=== PATIENT | female | born 1945 | race Caucasian/White ===

== ENCOUNTER 2019-11-25 10:06 | Inpatient (IN) ==
--- NOTE | 2019-11-25 11:35 | DR.H&P ---
H&P History & Physical for Day of: H&P Date: 11/25/19 Chief Complaint Chief Complaint: fever shortness of breath nausea/vomiting Allergies Allergies Allergy/AdvReac Type Severity Reaction Status Date / Time No Known Drug Allergies Allergy Verified 11/24/19 09:54 History of Present Illness History of Present Illness: Pt is a 74 y/o f pmhx HTN, Hypothyroidism, pr esenting after having fever, cough, body aches, worsening shortness of breath, nausea/vomiting, generalized weakness. Pt reports symptoms started early yesterday morning. She was seen in the ED yesterday and diagnosed with pneumonia. She was given antibiotics and steroids to continue at home and to follow up with pcp. This morning patient reported worsening of symptoms, failing outpatient treatment. She was directly admitted for further evaluation and treatment. Labs/imaging: Wbc:17.6>10.9, Hgb 13>11.7, Plt 266>235, Na 140>139, K 4.2>4.0, Cr 0.95>0.91, Gluc 107>95, CRP 12>89, AB.51/28/60/22/93%, UA not c/w infection, Flu/Strep negative, COVID19/BloodCx/SputumCx pending. CXR:Likely slight worsening of bilateral infiltrates. Consideration should be given to atypical causes of pneumonia as well as lobar pneumonia. Will start patient on treatments: Abx Levaquin, Solumedrol 60mg q8h, Duonebs, supplemental O2 prn, pneumonia protocol. Restart home medications. Continue to monitor and follow up labs/imaging in the morning. Past Medical History Past Medical History: Hypertension and Hypothyroidism Past Surgical History Surgical History: Hysterectomy Medications Home Medications: No Known Drug Allergies Allergy (Verified 11/24/19 09:54) Labs Result Diagrams: 11/25/19 12:52 11/25/19 12:52 Review of Systems Constitutional: Fever, Chills and Weakness Eyes: No Symptoms Reported ENT: No Symptoms Reported Respiratory: Cough and Shortness of Breath Cardiovascular: No Symptoms Reported Gastrointestinal: Nausea and Vomiting; denies Diarrhea and Constipation Genitourinary: No Symptoms Reported Musculoskeletal: No Symptoms Reported Skin: No Symptoms Reported Neurological: No Symptoms Reported Physical Exam Vital Signs: Blood Pressure [Left Arm] 138/72 Blood Pressure 118/54 Oriented: Normal Eyes: Normal Ear: Normal Nose: Normal Throat: Normal Respiratory: DIONICIO Rales and LML Rales Cardiovascular: Normal : Normal Auscultation: Bowel Sounds: Normal Palpation: Normal Tenderness: Epigastric and Mild Skin: Normal Musculoskeletal: Normal Psychiatric: Normal Mood Description: Calm and Appropriate Affect: Normal Speech Pattern: Clear and Appropriate Assessment/Plan (1) Pneumonia: Qualifiers: Laterality: left Lung location: upper lobe of lung Pneumonia type: due to unspecified organism Qualified Code(s): J18.9 - Pneumonia, unspecified organism Status: Acute Plan: Continue antibiotics, steroids, bronchodilators. Review H&P Reviewed: Yes Patient was examined?: Yes
--- NOTE | 2019-11-25 12:23 | RAD ---
HISTORYSOB, PNEUMONIASTUDYCHEST x-ray, 1 VIEWCOMPARISONX-ray 11/24/2019FINDINGSPersistent vague upper lobe infiltrates are seen bilaterally with slightly increasing left lower lobe infiltrate. Findings are probably due to pneumonia. Atypical causes of pneumonia are not excluded.Probable small left pleural effusion is seen. No pneumothorax is seen. Heart is normal in size. There is likely small hiatus hernia.IMPRESSIONLikely slight worsening of bilateral infiltrates. Consideration should be given to atypical causes of pneumonia as well as lobar pneumonia.Electronically signed by: David Bo (Nov 25, 2019 12:23:20)
[2019-11-25] MEDS ORDERED: SOLU-Medrol 40 MG VIAL IVP SCH (13:00)
[2019-11-25 13:14] LABS: BASOPHILS # (AUTO) 0.1 X10^3/uL (0.0-0.1); BASOPHILS % (AUTO) 0.5 % (0.2-1.0); EOSINOPHILS # (AUTO) 0.3 x10^3/uL (0.0-0.2); EOSINOPHILS % (AUTO) 2.4 % (0.9-2.9); HEMATOCRIT 35.3 % (36.0-47.0); HEMOGLOBIN 11.7 g/dL (12.0-16.0); LYMPHOCYTES % (AUTO) 18.2 % (21.0-51.0); MEAN CORPUSCULAR HEMOGLOBIN 29.1 pg (27.0-34.0); MEAN CORPUSCULAR HGB CONC 33.3 g/dL (33.0-35.0); MEAN CORPUSCULAR VOLUME 87.5 fL (80.0-100.0); MEAN PLATELET VOLUME 8.1 fL (7.4-11.0); MONOCYTES # (AUTO) 1.1 x10^3/uL (0.3-0.8); MONOCYTES % (AUTO) 9.7 % (0.0-13.0); NEUTROPHILS # (AUTO) 7.5 x10^3/uL (2.2-4.8); NEUTROPHILS % (AUTO) 69.2 % (42.0-75.0); PLATELET COUNT 235 X10^3/uL (150.0-450.0); RED BLOOD COUNT 4.03 X10^6/uL (3.5-5.4); RED CELL DISTRIBUTION WIDTH 13.6 % (11.6-16.5); WHITE BLOOD COUNT 10.9 X10^3/uL (3.6-10.0)
[2019-11-25 13:21] LABS: ALANINE AMINOTRANSFERASE 18 Units/L (12-78); ALBUMIN 2.6 g/dL (3.4-5.0); ALKALINE PHOSPHATASE 105 Units/L (46-116); ASPARTATE AMINO TRANSFERASE 18 Units/L (15-37); BLOOD UREA NITROGEN 14 mg/dL (7-18); CALCIUM 9.4 mg/dL (8.5-10.1); CARBON DIOXIDE 26.3 mmol/L (21-32); CHLORIDE 105 mmol/L (98-107); COR CA(FOR HYPOALB) 10.5 mg/dL (8.5-10.1); CREATININE 0.91 mg/dL (0.55-1.02); SODIUM 139 mmol/L (136-145); TOTAL PROTEIN 7.5 g/dL (6.4-8.2); eGFR NON BLACK RACES > 60 (>60)
[2019-11-25] MEDS: DUONEB 0.5 MG/3 MG (3 mL) NEB SCH ×2 (13:45→21:25)
[2019-11-25] MEDS: NS 1000 ML 1,000 ML IV SCH (13:57)
[2019-11-25] MEDS: LEVAQUIN PREMIX IV 500 MG 500 MG/100 ML BAG IV SCH (13:58)
[2019-11-25] MEDS: SOLU-Medrol 40 MG VIAL IVP SCH ×2 (14:11→21:11)
[2019-11-25 15:00] VITALS: BMI 23.3
[2019-11-25] MEDS: LOVENOX INJ 40 MG SYR SC SCH (16:33)
[2019-11-25] MEDS ORDERED: TORADOL 30 MG VIAL IM ONE (16:44)
[2019-11-25] MEDS ORDERED: MOTRIN TAB 400 MG PO PRN (16:45)
[2019-11-25] MEDS ORDERED: MOTRIN TAB 800 MG PO PRN (17:00)
[2019-11-25] MEDS ORDERED: MORPHINE SULFATE INJ 2 MG INJ IVP PRN (17:42)
[2019-11-25] MEDS ORDERED: COZAAR ONE (19:51)
[2019-11-25] MEDS ORDERED: CRESTOR TAB 10 MG PO ONE (19:52)
[2019-11-25] MEDS ORDERED: ZANAFLEX ONE (19:52)
[2019-11-25] MEDS: COZAAR PO SCH (20:55)
[2019-11-25] MEDS: CRESTOR TAB 10 MG PO SCH (20:55)
[2019-11-25] MEDS: ZANAFLEX PO SCH (20:56)
[2019-11-25] MEDS: ZOFRAN TAB 4 MG PO PRN (23:06)
[2019-11-26] MEDS: TYLENOL 325 MG TAB PO PRN ×3 (04:49→08:41)
[2019-11-26] MEDS: NS 1000 ML 1,000 ML IV SCH ×4 (04:50→20:57)
--- NOTE | 2019-11-26 05:10 | RAD ---
HISTORYPneumoniaSTUDYAP [id number]/2020FINDINGSStable heart size. Increasing bibasal infiltrates, left greater than right. The left diaphragm and costophrenic angle are now obscured by this process. The upper lobes remain relatively clear. No pneumothorax or pulmonary edema noted.IMPRESSIONDeveloping bibasal infiltrates, left greater than right, consistent with pneumonia.Electronically signed by: ALETHA PAN (Nov 26, 2019 05:10:10)
[2019-11-26 05:12] LABS: BASOPHILS % (AUTO) 0.1 % (0.2-1.0); HEMATOCRIT 33.3 % (36.0-47.0); LYMPHOCYTES % (AUTO) 14.1 % (21.0-51.0); MEAN CORPUSCULAR HEMOGLOBIN 28.8 pg (27.0-34.0); MEAN CORPUSCULAR VOLUME 87.2 fL (80.0-100.0); MEAN PLATELET VOLUME 8.5 fL (7.4-11.0); MONOCYTES # (AUTO) 0.2 x10^3/uL (0.3-0.8); MONOCYTES % (AUTO) 2.5 % (0.0-13.0); NEUTROPHILS # (AUTO) 6.1 x10^3/uL (2.2-4.8); NEUTROPHILS % (AUTO) 83.3 % (42.0-75.0); PLATELET COUNT 236 X10^3/uL (150.0-450.0); RED BLOOD COUNT 3.82 X10^6/uL (3.5-5.4); WHITE BLOOD COUNT 7.4 X10^3/uL (3.6-10.0)
[2019-11-26 05:21] LABS: ALANINE AMINOTRANSFERASE 19 Units/L (12-78); ALBUMIN 2.4 g/dL (3.4-5.0); ALKALINE PHOSPHATASE 102 Units/L (46-116); ASPARTATE AMINO TRANSFERASE 16 Units/L (15-37); BLOOD UREA NITROGEN 19 mg/dL (7-18); CALCIUM 9.4 mg/dL (8.5-10.1); CARBON DIOXIDE 20.5 mmol/L (21-32); CHLORIDE 107 mmol/L (98-107); COR CA(FOR HYPOALB) 10.7 mg/dL (8.5-10.1); COR NA(FOR HYPERGLY) 141 mmol/L (136-145); CREATININE 1.03 mg/dL (0.55-1.02); SODIUM 139 mmol/L (136-145); TOTAL PROTEIN 7.2 g/dL (6.4-8.2); eGFR NON BLACK RACES 55 (>60)
[2019-11-26] MEDS: SOLU-Medrol 40 MG VIAL IVP SCH ×2 (05:35→10:07)
[2019-11-26] MEDS: DUONEB 0.5 MG/3 MG (3 mL) NEB SCH ×3 (05:40→20:10)
[2019-11-26] MEDS ORDERED: MOTRIN TAB 800 MG PO PRN (08:29)
--- NOTE | 2019-11-26 08:35 | PCM.PROG ---
Progress Note Progress Note for Day of Date of Exam: 11/26/19 Subjective Subjective: Pt is a 74 y/o f pmhx HTN, Hypothyroidism, admitted for pneumonia. This morning the patient reports feeling a little better, eating breakfast, but still weak and having a headache. Labs/imaging: Wbc:10.9>7.4, Hgb 11, Plt 236, Na 139, K 3.9, Cr 1.03, Gluc 196, CRP 89>48, Flu/Strep negative, Rapid COVID19 and PCR negative, BloodCx NGTD, SputumCx pending. CXR:Developing bibasal infiltrates, left greater than right, consistent with pneumonia. Treatment course includes: Abx Levaquin, Solumedrol 60mg q8h, Duonebs, supplemental O2 prn, pneumonia protocol. Pt is on RA with O2sat >90%. Will add Zosyn coverage and decrease Solumedrol to 40mg daily. Continue to monitor and follow up labs/ imaging in the morning. Past Medical Family Social History Past Med/Fam/Surg Hx: No changes since H&P Allergies: Allergies No Known Drug Allergies Allergy (Verified 11/24/19 09:54) Review of Systems ROS: No change since H&P Vital Signs and I&O's Vital Signs: Temperature 98.3 F Pulse Rate 114 Respiratory Rate 33 Blood Pressure [Left Arm] 138/72 Blood Pressure 135/66 O2 Sat by Pulse Oximetry 96 Intake and Output: Intake & Output 11/23/19 11/24/19 11/25/19 11/26/19 23:59 23:59 23:59 23:59 Intake Total 1307 / 1307 675 / 675 Balance 1307 / 1307 675 / 675 Physical Exam Oriented: Normal Eyes: Normal Ear: Normal Nose: Normal Throat: Normal Respiratory: Rales Cardiovascular: Normal : Normal Auscultation: Bowel Sounds: Normal Tenderness: Epigastric and Mild Skin: Normal Musculoskeletal: Normal Psychiatric: Normal Mood Description: Calm and Appropriate Affect: Normal Speech Pattern: Clear Laboratory and Diagnostics Result Diagrams: 11/26/19 04:25 11/26/19 04:25 Labs: Laboratory WBC 7.4 X10^3/uL (3.6-10.0) 11/26/19 04:25 RBC 3.82 X10^6/uL (3.5-5.4) 11/26/19 04:25 Hgb 11.0 g/dL (12.0-16.0) L 11/26/19 04:25 Hct 33.3 % (36.0-47.0) L 11/26/19 04:25 MCV 87.2 fL (80.0-100.0) 11/26/19 04:25 MCH 28.8 pg (27.0-34.0) 11/26/19 04:25 MCHC 33.0 g/dL (33.0-35.0) 11/26/19 04:25 RDW 14.0 % (11.6-16.5) 11/26/19 04:25 Plt Count 236 X10^3/uL (150.0-450.0) 11/26/19 04:25 MPV 8.5 fL (7.4-11.0) 11/26/19 04:25 Neut % (Auto) 83.3 % (42.0-75.0) H 11/26/19 04:25 Lymph % (Auto) 14.1 % (21.0-51.0) L 11/26/19 04:25 [place] % (Auto) 2.5 % (0.0-13.0) 11/26/19 04:25 Eos % (Auto) 0.0 % (0.9-2.9) L 11/26/19 04:25 Baso % (Auto) 0.1 % (0.2-1.0) L 11/26/19 04:25 Neut # (Auto) 6.1 x10^3/uL (2.2-4.8) H 11/26/19 04:25 Lymph # (Auto) 1.0 X10^3/uL (1.3-2.9) L 11/26/19 04:25 [place] # (Auto) 0.2 x10^3/uL (0.3-0.8) L 11/26/19 04:25 Eos # (Auto) 0.0 x10^3/uL (0.0-0.2) 11/26/19 04:25 Baso # (Auto) 0.0 X10^3/uL (0.0-0.1) 11/26/19 04:25 Absolute Nucleated RBC 0.1 /100WBC 11/26/19 04:25 Sodium 139 mmol/L (136-145) 11/26/19 04:25 Corrected Sodium 141 mmol/L (136-145) 11/26/19 04:25 Potassium 3.9 mmol/L (3.5-5.1) 11/26/19 04:25 Chloride 107 mmol/L (98-107) 11/26/19 04:25 Carbon Dioxide 20.5 mmol/L (21-32) L 11/26/19 04:25 BUN 19 mg/dL (7-18) H 11/26/19 04:25 Creatinine 1.03 mg/dL (0.55-1.02) H 11/26/19 04:25 Est GFR (MDRD) Af Amer > 60 (>60) 11/26/19 04:25 Est GFR (MDRD) Non-Af 55 (>60) L 11/26/19 04:25 Glucose 196 mg/dL (65-99) H 11/26/19 04:25 Calcium 9.4 mg/dL (8.5-10.1) 11/26/19 04:25 Corrected Calcium 10.7 mg/dL (8.5-10.1) H 11/26/19 04:25 Total Bilirubin 0.20 mg/dL (0.2-1.0) 11/26/19 04:25 AST 16 Units/L (15-37) 11/26/19 04:25 ALT 19 Units/L (12-78) 11/26/19 04:25 Alkaline Phosphatase 102 Units/L (46-116) 11/26/19 04:25 C-Reactive Protein 48.00 mg/L (0-3.0) H 11/26/19 05:00 Total Protein 7.2 g/dL (6.4-8.2) 11/26/19 04:25 Albumin 2.4 g/dL (3.4-5.0) L 11/26/19 04:25 Globulin 4.8 g/dL (2.5-4.5) H 11/26/19 04:25 Albumin/Globulin Ratio 0.5 Ratio (1.1-2.1) L 11/26/19 04:25 SARS-CoV-2 (PCR) Negative (NEGATIVE) 10/08/20 17:50 Plan (1) Pneumonia: Status: Acute Qualifiers: Laterality: left Lung location: upper lobe of lung Pneumonia type: due to unspecified organism Qualified Code(s): J18.9 - Pneumonia, unspecified organism Plan: Continue antibiotics, steroids, bronchodilators. COVID19 negative.
[2019-11-26] MEDS: LEVAQUIN PREMIX IV 500 MG 500 MG/100 ML BAG IV SCH (08:40)
[2019-11-26] MEDS: ZOSYN VIAL 3.375 GRAMS 3.375 G in NS 100 ML IV + SPIKE MINIBAG* 100 ML IV SCH ×3 (08:40→21:04)
[2019-11-26] MEDS: ZANAFLEX PO SCH ×2 (08:42→20:56)
[2019-11-26] MEDS: PriLOSEC PO SCH (08:42)
[2019-11-26] MEDS: LOVENOX INJ 40 MG SYR SC SCH (08:43)
[2019-11-26] MEDS: SYNTHROID 88 mcg TAB PO SCH (08:43)
[2019-11-26] MEDS ORDERED: LEXAPRO ONE (08:46)
[2019-11-26] MEDS: VITAMIN C PO SCH (08:49)
[2019-11-26] MEDS: ZyrTEC TAB 10 MG PO SCH (08:49)
[2019-11-26] MEDS: LEXAPRO PO SCH (08:49)
[2019-11-26] MEDS: ZOFRAN TAB 4 MG PO PRN (20:20)
[2019-11-26] MEDS: CRESTOR TAB 10 MG PO SCH (20:56)
[2019-11-26] MEDS: COZAAR PO SCH (20:56)
[2019-11-27] MEDS: ZOSYN VIAL 3.375 GRAMS 3.375 G in NS 100 ML IV + SPIKE MINIBAG* 100 ML IV SCH ×3 (05:26→20:35)
[2019-11-27] MEDS: NS 1000 ML 1,000 ML IV SCH ×2 (05:26→13:55)
[2019-11-27] MEDS: DUONEB 0.5 MG/3 MG (3 mL) NEB SCH ×3 (05:35→21:05)
[2019-11-27 05:39] LABS: BASOPHILS % (AUTO) 0.2 % (0.2-1.0); HEMATOCRIT 31.7 % (36.0-47.0); HEMOGLOBIN 10.3 g/dL (12.0-16.0); LYMPHOCYTES # (AUTO) 1.5 X10^3/uL (1.3-2.9); LYMPHOCYTES % (AUTO) 8.9 % (21.0-51.0); MEAN CORPUSCULAR HEMOGLOBIN 28.8 pg (27.0-34.0); MEAN CORPUSCULAR HGB CONC 32.7 g/dL (33.0-35.0); MEAN CORPUSCULAR VOLUME 88.1 fL (80.0-100.0); MEAN PLATELET VOLUME 8.5 fL (7.4-11.0); MONOCYTES # (AUTO) 1.1 x10^3/uL (0.3-0.8); MONOCYTES % (AUTO) 6.7 % (0.0-13.0); NEUTROPHILS # (AUTO) 14.1 x10^3/uL (2.2-4.8); NEUTROPHILS % (AUTO) 84.2 % (42.0-75.0); PLATELET COUNT 232 X10^3/uL (150.0-450.0); RED CELL DISTRIBUTION WIDTH 14.1 % (11.6-16.5)
[2019-11-27 05:47] LABS: ALANINE AMINOTRANSFERASE 28 Units/L (12-78); ALBUMIN 2.4 g/dL (3.4-5.0); ALKALINE PHOSPHATASE 95 Units/L (46-116); ASPARTATE AMINO TRANSFERASE 28 Units/L (15-37); BLOOD UREA NITROGEN 23 mg/dL (7-18); CALCIUM 9.3 mg/dL (8.5-10.1); CARBON DIOXIDE 22.9 mmol/L (21-32); CHLORIDE 110 mmol/L (98-107); COR CA(FOR HYPOALB) 10.6 mg/dL (8.5-10.1); COR NA(FOR HYPERGLY) 144 mmol/L (136-145); CREATININE 0.94 mg/dL (0.55-1.02); SODIUM 143 mmol/L (136-145); TOTAL PROTEIN 6.8 g/dL (6.4-8.2); eGFR NON BLACK RACES > 60 (>60)
[2019-11-27 06:00] LABS: WHITE BLOOD COUNT 16.8 X10^3/uL (3.6-10.0)
[2019-11-27] MEDS ORDERED: LEXAPRO ONE (08:07)
[2019-11-27] MEDS: LEVAQUIN PREMIX IV 500 MG 500 MG/100 ML BAG IV SCH (08:51)
[2019-11-27] MEDS: LEXAPRO PO SCH (08:52)
[2019-11-27] MEDS: LOVENOX INJ 40 MG SYR SC SCH (08:53)
[2019-11-27] MEDS: PriLOSEC PO SCH (08:53)
[2019-11-27] MEDS: ZANAFLEX PO SCH ×2 (08:54→20:35)
[2019-11-27] MEDS: SOLU-Medrol 40 MG VIAL IVP SCH (08:54)
[2019-11-27] MEDS: VITAMIN C PO SCH (08:54)
[2019-11-27] MEDS: SYNTHROID 88 mcg TAB PO SCH (08:54)
[2019-11-27] MEDS: ZyrTEC TAB 10 MG PO SCH (08:55)
[2019-11-27] MEDS: ZOFRAN TAB 4 MG PO PRN ×2 (14:47→21:08)
[2019-11-27] MEDS: COZAAR PO SCH (20:35)
[2019-11-27] MEDS: CRESTOR TAB 10 MG PO SCH (20:35)
[2019-11-28] MEDS: NS 1000 ML 1,000 ML IV SCH ×2 (01:54→11:23)
[2019-11-28 05:14] LABS: BASOPHILS % (AUTO) 0.2 % (0.2-1.0); HEMATOCRIT 29.5 % (36.0-47.0); HEMOGLOBIN 9.6 g/dL (12.0-16.0); LYMPHOCYTES # (AUTO) 2.2 X10^3/uL (1.3-2.9); LYMPHOCYTES % (AUTO) 19.4 % (21.0-51.0); MEAN CORPUSCULAR HEMOGLOBIN 28.8 pg (27.0-34.0); MEAN CORPUSCULAR HGB CONC 32.5 g/dL (33.0-35.0); MEAN CORPUSCULAR VOLUME 88.7 fL (80.0-100.0); MEAN PLATELET VOLUME 8.8 fL (7.4-11.0); MONOCYTES # (AUTO) 0.9 x10^3/uL (0.3-0.8); MONOCYTES % (AUTO) 7.6 % (0.0-13.0); NEUTROPHILS # (AUTO) 8.1 x10^3/uL (2.2-4.8); NEUTROPHILS % (AUTO) 72.8 % (42.0-75.0); PLATELET COUNT 212 X10^3/uL (150.0-450.0); RED BLOOD COUNT 3.32 X10^6/uL (3.5-5.4); RED CELL DISTRIBUTION WIDTH 14.2 % (11.6-16.5); WHITE BLOOD COUNT 11.2 X10^3/uL (3.6-10.0)
[2019-11-28 05:24] LABS: ALANINE AMINOTRANSFERASE 26 Units/L (12-78); ALBUMIN 2.3 g/dL (3.4-5.0); ALKALINE PHOSPHATASE 81 Units/L (46-116); ASPARTATE AMINO TRANSFERASE 23 Units/L (15-37); BLOOD UREA NITROGEN 24 mg/dL (7-18); CARBON DIOXIDE 22.9 mmol/L (21-32); CHLORIDE 110 mmol/L (98-107); COR CA(FOR HYPOALB) 10.4 mg/dL (8.5-10.1); CREATININE 0.91 mg/dL (0.55-1.02); SODIUM 142 mmol/L (136-145); TOTAL PROTEIN 6.4 g/dL (6.4-8.2); eGFR NON BLACK RACES > 60 (>60)
[2019-11-28] MEDS: DUONEB 0.5 MG/3 MG (3 mL) NEB SCH ×3 (05:35→21:36)
[2019-11-28] MEDS: ZOSYN VIAL 3.375 GRAMS 3.375 G in NS 100 ML IV + SPIKE MINIBAG* 100 ML IV SCH ×3 (05:50→21:14)
[2019-11-28] MEDS ORDERED: LEXAPRO ONE (07:57)
[2019-11-28] MEDS: LEXAPRO PO SCH (08:14)
[2019-11-28] MEDS: LEVAQUIN PREMIX IV 500 MG 500 MG/100 ML BAG IV SCH (08:15)
[2019-11-28] MEDS: LOVENOX INJ 40 MG SYR SC SCH (08:15)
[2019-11-28] MEDS: SOLU-Medrol 40 MG VIAL IVP SCH (08:16)
[2019-11-28] MEDS: PriLOSEC PO SCH ×2 (08:16→20:22)
[2019-11-28] MEDS: VITAMIN C PO SCH (08:16)
[2019-11-28] MEDS: SYNTHROID 88 mcg TAB PO SCH (08:16)
[2019-11-28] MEDS: ZANAFLEX PO SCH ×2 (08:17→20:23)
[2019-11-28] MEDS: ZyrTEC TAB 10 MG PO SCH (08:17)
[2019-11-28] MEDS: PEPCID TAB 20 MG PO SCH (20:20)
[2019-11-28] MEDS: CRESTOR TAB 10 MG PO SCH (20:21)
[2019-11-28] MEDS: ZOFRAN TAB 4 MG PO PRN (20:22)
[2019-11-28] MEDS: COZAAR PO SCH (20:22)
--- NOTE | 2019-11-28 21:24 | PCM.PROG ---
Progress Note - Progress Note for Day of Date of Exam: 11/27/19 - Subjective Subjective: The patient is a 74yo WF who is admitted secondary to bilateral pneuomonia. Patient is COVID negative. Patient is sitting up in chair at bedside. Does state she feels better. Does conitnue to feel weak. Is wearing oxygen via NC. Denies productive cough or dyspnea. No other complaints. voiced. - Past Medical Family Social History Past Med/Fam/Surg Hx: No changes since H&P Allergies: Allergies No Known Drug Allergies Allergy (Verified 11/24/19 09:54) - Review of Systems ROS: No change since H&P - Vital Signs and I&O's Vital Signs: Temperature 98.5 F Pulse Rate 96 Respiratory Rate 20 Blood Pressure [Left Arm] 138/72 Blood Pressure 121/61 O2 Sat by Pulse Oximetry 93 Intake and Output: Intake & Output 11/25/19 11/26/19 11/27/19 11/28/19 23:59 23:59 23:59 23:59 Intake Total 1307 / 1307 2515 / 2515 2776 / 2776 2094 Output Total 100 / 100 Balance 1307 / 1307 2515 / 2515 2676 / 2676 2094 - Physical Exam Oriented: Normal Eyes: Normal Ear: Normal Nose: Normal Throat: Normal Respiratory: Diminished Cardiovascular: Normal : Normal Auscultation: Bowel Sounds: Normal Palpation: Normal Tenderness: Normal Skin: Normal Musculoskeletal: Normal Psychiatric: Normal Mood Description: Calm, Appropriate Affect: Normal Speech Pattern: Clear - Laboratory and Diagnostics Result Diagrams: 11/28/19 04:25 11/28/19 04:25 Labs: Laboratory WBC 11.2 X10^3/uL (3.6-10.0) H 11/28/19 04:25 RBC 3.32 X10^6/uL (3.5-5.4) L 11/28/19 04:25 Hgb 9.6 g/dL (12.0-16.0) L 11/28/19 04:25 Hct 29.5 % (36.0-47.0) L 11/28/19 04:25 MCV 88.7 fL (80.0-100.0) 11/28/19 04:25 MCH 28.8 pg (27.0-34.0) 11/28/19 04:25 MCHC 32.5 g/dL (33.0-35.0) L 11/28/19 04:25 RDW 14.2 % (11.6-16.5) 11/28/19 04:25 Plt Count 212 X10^3/uL (150.0-450.0) 11/28/19 04:25 MPV 8.8 fL (7.4-11.0) 11/28/19 04:25 Neut % (Auto) 72.8 % (42.0-75.0) 11/28/19 04:25 Lymph % (Auto) 19.4 % (21.0-51.0) L 11/28/19 04:25 [place] % (Auto) 7.6 % (0.0-13.0) 11/28/19 04:25 Eos % (Auto) 0.0 % (0.9-2.9) L 11/28/19 04:25 Baso % (Auto) 0.2 % (0.2-1.0) 11/28/19 04:25 Neut # (Auto) 8.1 x10^3/uL (2.2-4.8) H 11/28/19 04:25 Lymph # (Auto) 2.2 X10^3/uL (1.3-2.9) 11/28/19 04:25 [place] # (Auto) 0.9 x10^3/uL (0.3-0.8) H 11/28/19 04:25 Eos # (Auto) 0.0 x10^3/uL (0.0-0.2) 11/28/19 04:25 Baso # (Auto) 0.0 X10^3/uL (0.0-0.1) 11/28/19 04:25 Absolute Nucleated RBC 0.0 /100WBC 11/28/19 04:25 Sodium 142 mmol/L (136-145) 11/28/19 04:25 Corrected Sodium TNP 11/28/19 04:25 Potassium 4.2 mmol/L (3.5-5.1) 11/28/19 04:25 Chloride 110 mmol/L (98-107) H 11/28/19 04:25 Carbon Dioxide 22.9 mmol/L (21-32) 11/28/19 04:25 BUN 24 mg/dL (7-18) H 11/28/19 04:25 Creatinine 0.91 mg/dL (0.55-1.02) 11/28/19 04:25 Est GFR (MDRD) Af Amer > 60 (>60) 11/28/19 04:25 Est GFR (MDRD) Non-Af > 60 (>60) 11/28/19 04:25 Glucose 110 mg/dL (65-99) H 11/28/19 04:25 Calcium 9.0 mg/dL (8.5-10.1) 11/28/19 04:25 Corrected Calcium 10.4 mg/dL (8.5-10.1) H 11/28/19 04:25 Total Bilirubin 0.20 mg/dL (0.2-1.0) 11/28/19 04:25 AST 23 Units/L (15-37) 11/28/19 04:25 ALT 26 Units/L (12-78) 11/28/19 04:25 Alkaline Phosphatase 81 Units/L (46-116) 11/28/19 04:25 C-Reactive Protein 16.30 mg/L (0-3.0) H 11/27/19 04:34 Total Protein 6.4 g/dL (6.4-8.2) 11/28/19 04:25 Albumin 2.3 g/dL (3.4-5.0) L 11/28/19 04:25 Globulin 4.1 g/dL (2.5-4.5) 11/28/19 04:25 Albumin/Globulin Ratio 0.6 Ratio (1.1-2.1) L 11/28/19 04:25 SARS-CoV-2 (PCR) Negative (NEGATIVE) 11/25/19 17:50 Radiology Reviewed: Yes - Plan (1) Pneumonia Status: Acute Qualifiers: Pneumonia type: due to unspecified organism Laterality: left Lung location: upper lobe of lung Qualified Code(s): J18.9 - Pneumonia, unspecified organism Plan: Continue antibiotics, steroids, bronchodilators. COVID19 negative. (2) Hypertension Status: Acute Qualifiers: Hypertension type: essential hypertension Qualified Code(s): I10 - Essential (primary) hypertension Plan: Continue antihypertensive medications. Monitor BP.
--- NOTE | 2019-11-28 21:30 | PCM.PROG ---
Progress Note - Progress Note for Day of Date of Exam: 11/28/19 - Subjective Subjective: The patient is a 74yo WF who is admitted secondary to bilateral pneuomonia. Patient is COVID negative. Patient is sitting up in chair at bedside. Does state she feels better. But is complaining of terrible heartburn. States that she is having trouble eating anything due to the pain with eating. States she takes a pink and blue pill at home that helps. Is taking omeprozole now. Does continue to feel weak. Is wearing oxygen via NC. Denies productive cough or dyspnea. No other complaints. voiced. - Past Medical Family Social History Past Med/Fam/Surg Hx: No changes since H&P Allergies: Allergies No Known Drug Allergies Allergy (Verified 11/24/19 09:54) - Review of Systems ROS: No change since H&P - Vital Signs and I&O's Vital Signs: Temperature 98.5 F Pulse Rate 96 Respiratory Rate 20 Blood Pressure [Left Arm] 138/72 Blood Pressure 121/61 O2 Sat by Pulse Oximetry 93 Intake and Output: Intake & Output 11/25/19 11/26/19 11/27/19 11/28/19 23:59 23:59 23:59 23:59 Intake Total 1307 / 1307 2515 / 2515 2776 / 2776 2094 Output Total 100 / 100 Balance 1307 / 1307 2515 / 2515 2676 / 2676 2094 - Physical Exam Oriented: Normal Eyes: Normal Ear: Normal Nose: Normal Throat: Normal Respiratory: Diminished Cardiovascular: Normal : Normal Auscultation: Bowel Sounds: Normal Tenderness: Epigastric, Mild Skin: Normal Musculoskeletal: Normal Psychiatric: Normal Mood Description: Calm, Appropriate Affect: Normal Speech Pattern: Clear - Laboratory and Diagnostics Result Diagrams: 11/28/19 04:25 11/28/19 04:25 Labs: Laboratory WBC 11.2 X10^3/uL (3.6-10.0) H 11/28/19 04:25 RBC 3.32 X10^6/uL (3.5-5.4) L 11/28/19 04:25 Hgb 9.6 g/dL (12.0-16.0) L 11/28/19 04:25 Hct 29.5 % (36.0-47.0) L 11/28/19 04:25 MCV 88.7 fL (80.0-100.0) 11/28/19 04:25 MCH 28.8 pg (27.0-34.0) 11/28/19 04:25 MCHC 32.5 g/dL (33.0-35.0) L 11/28/19 04:25 RDW 14.2 % (11.6-16.5) 11/28/19 04:25 Plt Count 212 X10^3/uL (150.0-450.0) 11/28/19 04:25 MPV 8.8 fL (7.4-11.0) 11/28/19 04:25 Neut % (Auto) 72.8 % (42.0-75.0) 11/28/19 04:25 Lymph % (Auto) 19.4 % (21.0-51.0) L 11/28/19 04:25 [place] % (Auto) 7.6 % (0.0-13.0) 11/28/19 04:25 Eos % (Auto) 0.0 % (0.9-2.9) L 11/28/19 04:25 Baso % (Auto) 0.2 % (0.2-1.0) 11/28/19 04:25 Neut # (Auto) 8.1 x10^3/uL (2.2-4.8) H 11/28/19 04:25 Lymph # (Auto) 2.2 X10^3/uL (1.3-2.9) 11/28/19 04:25 [place] # (Auto) 0.9 x10^3/uL (0.3-0.8) H 11/28/19 04:25 Eos # (Auto) 0.0 x10^3/uL (0.0-0.2) 11/28/19 04:25 Baso # (Auto) 0.0 X10^3/uL (0.0-0.1) 11/28/19 04:25 Absolute Nucleated RBC 0.0 /100WBC 11/28/19 04:25 Sodium 142 mmol/L (136-145) 11/28/19 04:25 Corrected Sodium TNP 11/28/19 04:25 Potassium 4.2 mmol/L (3.5-5.1) 11/28/19 04:25 Chloride 110 mmol/L (98-107) H 11/28/19 04:25 Carbon Dioxide 22.9 mmol/L (21-32) 11/28/19 04:25 BUN 24 mg/dL (7-18) H 11/28/19 04:25 Creatinine 0.91 mg/dL (0.55-1.02) 11/28/19 04:25 Est GFR (MDRD) Af Amer > 60 (>60) 11/28/19 04:25 Est GFR (MDRD) Non-Af > 60 (>60) 11/28/19 04:25 Glucose 110 mg/dL (65-99) H 11/28/19 04:25 Calcium 9.0 mg/dL (8.5-10.1) 11/28/19 04:25 Corrected Calcium 10.4 mg/dL (8.5-10.1) H 11/28/19 04:25 Total Bilirubin 0.20 mg/dL (0.2-1.0) 11/28/19 04:25 AST 23 Units/L (15-37) 11/28/19 04:25 ALT 26 Units/L (12-78) 11/28/19 04:25 Alkaline Phosphatase 81 Units/L (46-116) 11/28/19 04:25 C-Reactive Protein 16.30 mg/L (0-3.0) H 11/27/19 04:34 Total Protein 6.4 g/dL (6.4-8.2) 11/28/19 04:25 Albumin 2.3 g/dL (3.4-5.0) L 11/28/19 04:25 Globulin 4.1 g/dL (2.5-4.5) 11/28/19 04:25 Albumin/Globulin Ratio 0.6 Ratio (1.1-2.1) L 11/28/19 04:25 SARS-CoV-2 (PCR) Negative (NEGATIVE) 11/25/19 17:50 - Plan (1) Pneumonia Status: Acute Qualifiers: Pneumonia type: due to unspecified organism Laterality: left Lung locatio n: upper lobe of lung Qualified Code(s): J18.9 - Pneumonia, unspecified organism Plan: Continue antibiotics, steroids, bronchodilators. COVID19 negative. (2) GERD (gastroesophageal reflux disease) Status: Acute Plan: Prilosec. Add pepdic 40mg po BID. (3) Hypertension Status: Acute Qualifiers: Hypertension type: essential hypertension Qualified Code(s): I10 - Essential (primary) hypertension Plan: Continue antihypertensive medications. Monitor BP. (4) Leukocytosis Status: Acute Plan: Steroid induced. Monitor CBC.
[2019-11-29] MEDS: NS 1000 ML 1,000 ML IV SCH ×2 (00:45→02:49)
[2019-11-29 05:23] LABS: BASOPHILS % (AUTO) 0.2 % (0.2-1.0); EOSINOPHILS # (AUTO) 0.1 x10^3/uL (0.0-0.2); EOSINOPHILS % (AUTO) 0.9 % (0.9-2.9); HEMOGLOBIN 9.5 g/dL (12.0-16.0); LYMPHOCYTES # (AUTO) 2.3 X10^3/uL (1.3-2.9); LYMPHOCYTES % (AUTO) 28.3 % (21.0-51.0); MEAN CORPUSCULAR HEMOGLOBIN 29.1 pg (27.0-34.0); MEAN CORPUSCULAR HGB CONC 32.7 g/dL (33.0-35.0); MEAN PLATELET VOLUME 8.7 fL (7.4-11.0); MONOCYTES % (AUTO) 12.4 % (0.0-13.0); NEUTROPHILS # (AUTO) 4.8 x10^3/uL (2.2-4.8); NEUTROPHILS % (AUTO) 58.2 % (42.0-75.0); PLATELET COUNT 200 X10^3/uL (150.0-450.0); RED BLOOD COUNT 3.26 X10^6/uL (3.5-5.4); RED CELL DISTRIBUTION WIDTH 14.2 % (11.6-16.5); WHITE BLOOD COUNT 8.3 X10^3/uL (3.6-10.0)
--- NOTE | 2019-11-29 05:29 | RAD ---
HISTORYPneumoniaSTUDYChest PA and lateral [id number] heart is not significantly enlarged. Persistent but improving bibasal infiltrates/atelectasis. The upper lobes remain clear. There is no evidence for edema, pneumothorax or pleural fluid. Hiatal hernia is observed.IMPRESSIONInterval improvement in appearance of the lungs since 11/26/2019.Electronically signed by: ALETHA PAN (Nov 29, 2019 05:28:51)
[2019-11-29 05:39] LABS: ALANINE AMINOTRANSFERASE 29 Units/L (12-78); ALBUMIN 2.2 g/dL (3.4-5.0); ALKALINE PHOSPHATASE 72 Units/L (46-116); ASPARTATE AMINO TRANSFERASE 28 Units/L (15-37); BLOOD UREA NITROGEN 18 mg/dL (7-18); CALCIUM 8.7 mg/dL (8.5-10.1); CARBON DIOXIDE 22.1 mmol/L (21-32); CHLORIDE 110 mmol/L (98-107); COR CA(FOR HYPOALB) 10.1 mg/dL (8.5-10.1); CREATININE 0.87 mg/dL (0.55-1.02); SODIUM 143 mmol/L (136-145); eGFR NON BLACK RACES > 60 (>60)
[2019-11-29] MEDS: ZOSYN VIAL 3.375 GRAMS 3.375 G in NS 100 ML IV + SPIKE MINIBAG* 100 ML IV SCH (05:53)
[2019-11-29] MEDS: DUONEB 0.5 MG/3 MG (3 mL) NEB SCH ×3 (06:14→21:19)
[2019-11-29] MEDS ORDERED: LEXAPRO ONE (07:57)
[2019-11-29] MEDS: LEVAQUIN PREMIX IV 500 MG 500 MG/100 ML BAG IV SCH (08:10)
[2019-11-29] MEDS: LEXAPRO PO SCH (08:10)
[2019-11-29] MEDS: LOVENOX INJ 40 MG SYR SC SCH (08:11)
[2019-11-29] MEDS: PEPCID TAB 20 MG PO SCH ×2 (08:11→20:25)
[2019-11-29] MEDS: PriLOSEC PO SCH ×2 (08:12→20:29)
[2019-11-29] MEDS: SOLU-Medrol 40 MG VIAL IVP SCH (08:12)
[2019-11-29] MEDS: SYNTHROID 88 mcg TAB PO SCH (08:12)
--- NOTE | 2019-11-29 08:14 | PCM.PROG ---
Progress Note Progress Note for Day of Date of Exam: 11/29/19 Subjective Subjective: The patient is a 74 y/o WF who is admitted secondary to bilateral pneuomonia. Patient is COVID negative. This morning pt is sitting in chair on RA. She reports some productive cough, whitish sputum, otherwise she is improving and ambulating in the room. Will get PT to evaluate today. Labs/im aging: Wbc 8.3, Hgb 9.5, Plt 200, Na 143, K 4, Cr 0.87, Gluc 94. CXR: interval improvement. Treatment course includes: Abx: Levaquin+Zosyn. Solumedrol, Bronchodilators, pneumonia protocol. Pt is tolerating diet well, will d/c IVF. Continue to monitor and follow up labs/imaging in the morning. Past Medical Family Social History Past Med/Fam/Surg Hx: No changes since H&P Allergies: Allergies No Known Drug Allergies Allergy (Verified 11/24/19 09:54) Review of Systems ROS: No change since H&P Vital Signs and I&O's Vital Signs: Temperature 98.2 F Pulse Rate 88 Respiratory Rate 20 Blood Pressure [Left Arm] 138/72 Blood Pressure 148/70 O2 Sat by Pulse Oximetry 93 Intake and Output: Intake & Output 11/26/19 11/27/19 11/28/19 11/29/19 23:59 23:59 23:59 23:59 Intake Total 2515 / 2515 2776 / 2776 2575 / 2575 700 / 700 Output Total 100 / 100 Balance 2515 / 2515 2676 / 2676 2575 / 2575 700 / 700 Physical Exam Oriented: Normal Eyes: Normal Ear: Normal Nose: Normal Throat: Normal Respiratory: Rales Cardiovascular: Normal : Normal Auscultation: Bowel Sounds: Normal Tenderness: Normal Skin: Normal Musculoskeletal: Normal Psychiatric: Normal Mood Description: Calm and Appropriate Affect: Normal Speech Pattern: Clear Laboratory and Diagnostics Result Diagrams: 11/29/19 04:14 11/29/19 04:14 Labs: Laboratory WBC 8.3 X10^3/uL (3.6-10.0) 11/29/19 04:14 RBC 3.26 X10^6/uL (3.5-5.4) L 11/29/19 04:14 Hgb 9.5 g/dL (12.0-16.0) L 11/29/19 04:14 Hct 29.0 % (36.0-47.0) L 11/29/19 04:14 MCV 89.0 fL (80.0-100.0) 11/29/19 04:14 MCH 29.1 pg (27.0-34.0) 11/29/19 04:14 MCHC 32.7 g/dL (33.0-35.0) L 11/29/19 04:14 RDW 14.2 % (11.6-16.5) 11/29/19 04:14 Plt Count 200 X10^3/uL (150.0-450.0) 11/29/19 04:14 MPV 8.7 fL (7.4-11.0) 11/29/19 04:14 Neut % (Auto) 58.2 % (42.0-75.0) 11/29/19 04:14 Lymph % (Auto) 28.3 % (21.0-51.0) 11/29/19 04:14 [place] % (Auto) 12.4 % (0.0-13.0) 11/29/19 04:14 Eos % (Auto) 0.9 % (0.9-2.9) 11/29/19 04:14 Baso % (Auto) 0.2 % (0.2-1.0) 11/29/19 04:14 Neut # (Auto) 4.8 x10^3/uL (2.2-4.8) 11/29/19 04:14 Lymph # (Auto) 2.3 X10^3/uL (1.3-2.9) 11/29/19 04:14 [place] # (Auto) 1.0 x10^3/uL (0.3-0.8) H 11/29/19 04:14 Eos # (Auto) 0.1 x10^3/uL (0.0-0.2) 11/29/19 04:14 Baso # (Auto) 0.0 X10^3/uL (0.0-0.1) 11/29/19 04:14 Absolute Nucleated RBC 0.0 /100WBC 11/29/19 04:14 Sodium 143 mmol/L (136-145) 11/29/19 04:14 Corrected Sodium TNP 11/29/19 04:14 Potassium 4.0 mmol/L (3.5-5.1) 11/29/19 04:14 Chloride 110 mmol/L (98-107) H 11/29/19 04:14 Carbon Dioxide 22.1 mmol/L (21-32) 11/29/19 04:14 BUN 18 mg/dL (7-18) 11/29/19 04:14 Creatinine 0.87 mg/dL (0.55-1.02) 11/29/19 04:14 Est GFR (MDRD) Af Amer > 60 (>60) 11/29/19 04:14 Est GFR (MDRD) Non-Af > 60 (>60) 11/29/19 04:14 Glucose 94 mg/dL (65-99) 11/29/19 04:14 Calcium 8.7 mg/dL (8.5-10.1) 11/29/19 04:14 Corrected Calcium 10.1 mg/dL (8.5-10.1) 11/29/19 04:14 Total Bilirubin 0.20 mg/dL (0.2-1.0) 11/29/19 04:14 AST 28 Units/L (15-37) 11/29/19 04:14 ALT 29 Units/L (12-78) 11/29/19 04:14 Alkaline Phosphatase 72 Units/L (46-116) 11/29/19 04:14 C-Reactive Protein 16.30 mg/L (0-3.0) H 11/27/19 04:34 Total Protein 6.0 g/dL (6.4-8.2) L 11/29/19 04:14 Albumin 2.2 g/dL (3.4-5.0) L 11/29/19 04:14 Globulin 3.8 g/dL (2.5-4.5) 11/29/19 04:14 Albumin/Globulin Ratio 0.6 Ratio (1.1-2.1) L 11/29/19 04:14 SARS-CoV-2 (PCR) Negative (NEGATIVE) 11/25/19 17:50 Plan (1) Pneumonia: Status: Acute Qualifiers: Laterality: left Lung location: upper lobe of lung Pneumonia type: due to unspecified organism Qualified Code(s): J18.9 - Pneumonia, unspecified o rganism Plan: Continue antibiotics, steroids, bronchodilators. COVID19 negative. (2) GERD (gastroesophageal reflux disease): Status: Acute Plan: Prilosec. Add pepdic 40mg po BID. (3) Hypertension: Status: Acute Qualifiers: Hypertension type: essential hypertension Qualified Code(s): I10 - Essential (primary) hypertension Plan: Continue antihypertensive medications. Monitor BP. (4) Leukocytosis: Status: Acute Plan: Steroid induced. Monitor CBC.
[2019-11-29] MEDS: VITAMIN C PO SCH (08:15)
[2019-11-29] MEDS: ZyrTEC TAB 10 MG PO SCH (08:15)
[2019-11-29] MEDS: ZANAFLEX PO SCH ×2 (08:25→20:29)
--- NOTE | 2019-11-29 10:57 | RAD ---
HISTORYPneumoniaSTUDYPortable AP [id number] size similar/stable. Increasing bibasal infiltrates since prior study. The upper lobes remain clear. No pneumothorax or pleural fluid is demonstrated. Hiatal hernia again noted.IMPRESSIONRecurrent bibasal infiltrates consistent with pneumonia/atelectasis.Electronically signed by: ALETHA PAN (Nov 29, 2019 10:56:37)
[2019-11-29] MEDS: ZOSYN VIAL 4.5 GRAMS 4.5 G in NS 100 ML IV + SPIKE MINIBAG* 100 ML IV SCH ×2 (14:05→21:35)
[2019-11-29] MEDS: COZAAR PO SCH (20:26)
[2019-11-29] MEDS: CRESTOR TAB 10 MG PO SCH (20:28)
[2019-11-30] MEDS: ZOSYN VIAL 4.5 GRAMS 4.5 G in NS 100 ML IV + SPIKE MINIBAG* 100 ML IV SCH (05:38)
[2019-11-30 06:04] LABS: BASOPHILS % (AUTO) 0.2 % (0.2-1.0); EOSINOPHILS # (AUTO) 0.4 x10^3/uL (0.0-0.2); EOSINOPHILS % (AUTO) 4.8 % (0.9-2.9); HEMATOCRIT 29.6 % (36.0-47.0); HEMOGLOBIN 9.8 g/dL (12.0-16.0); LYMPHOCYTES # (AUTO) 2.9 X10^3/uL (1.3-2.9); LYMPHOCYTES % (AUTO) 33.3 % (21.0-51.0); MEAN CORPUSCULAR HEMOGLOBIN 28.9 pg (27.0-34.0); MEAN CORPUSCULAR VOLUME 87.6 fL (80.0-100.0); MONOCYTES % (AUTO) 11.8 % (0.0-13.0); NEUTROPHILS # (AUTO) 4.4 x10^3/uL (2.2-4.8); NEUTROPHILS % (AUTO) 49.9 % (42.0-75.0); PLATELET COUNT 200 X10^3/uL (150.0-450.0); RED BLOOD COUNT 3.37 X10^6/uL (3.5-5.4); RED CELL DISTRIBUTION WIDTH 14.6 % (11.6-16.5); WHITE BLOOD COUNT 8.8 X10^3/uL (3.6-10.0)
[2019-11-30 06:28] LABS: ALANINE AMINOTRANSFERASE 28 Units/L (12-78); ALBUMIN 2.2 g/dL (3.4-5.0); ALKALINE PHOSPHATASE 70 Units/L (46-116); ASPARTATE AMINO TRANSFERASE 19 Units/L (15-37); BLOOD UREA NITROGEN 16 mg/dL (7-18); CALCIUM 8.8 mg/dL (8.5-10.1); CHLORIDE 110 mmol/L (98-107); COR CA(FOR HYPOALB) 10.2 mg/dL (8.5-10.1); CREATININE 0.86 mg/dL (0.55-1.02); SODIUM 143 mmol/L (136-145); TOTAL PROTEIN 5.9 g/dL (6.4-8.2); eGFR NON BLACK RACES > 60 (>60)
[2019-11-30 06:38] LABS: BAND NEUTROPHILS % 3 % (0-10); PLATELET MORPHOLOGY COMMENT NORMAL (NORMAL)
[2019-11-30] MEDS ORDERED: K-RIDER 10 MEQ/NS 100 ML 10 MEQ/100 ML BAG IV PRN (07:41)
[2019-11-30] MEDS ORDERED: POTASSIUM CHL 40 MEQ/NS 0.45% 500 ML IV PRN (07:41)
[2019-11-30] MEDS ORDERED: MICRO K EXTEN CAP 10 MEQ PO PRN (07:41)
[2019-11-30] MEDS ORDERED: KLOR-CON PO PRN (07:41)
[2019-11-30] MEDS ORDERED: POTASSIUM CHLORIDE LIQ 20 MEQ UDC PO PRN (07:41)
[2019-11-30] MEDS ORDERED: POTASSIUM CHL 60 MEQ/NS 0.45% 500 ML IV PRN (07:41)
[2019-11-30] MEDS ORDERED: K-DUR TAB 20 MEQ PO PRN (07:41)
--- NOTE | 2019-11-30 08:20 | W.DIS.FURT ---
Summary of Discharge Discharge Summary of Date Date of Exam: 11/30/19 Admission Date Date of Admission: 11/25/19 Admission Diagnosis Hospital Course: Patient is a 74 y/o f who was admitted secondary to bilateral pneuomonia. COVID negative. Her hospital/treatment course included Abx: Levaquin+Zosyn. Solumedrol, Bronchodilators, pneumonia protocol. Labs/imaging: Wbc 8.8, Hgb 9.8, Plt 200, Na 143, K 3.7, Cr 0.86, Gluc 89. CXR: showing interval improvement. Pt responded well and significantly improved with treatment. She was discharged in stable condition, on RA, without needing supplemental O2. She was instructed to take Levaquin at home for 3 more days and to follow up with her pcp in 1 week. Vital Signs: Vital Signs (72 hours) 11/27/19 12:00 11/27/19 16:00 11/27/19 20:00 Temperature 98.1 F 98.6 F 97.6 F Pulse Rate 76 94 H 88 Respiratory Rate 20 20 18 Blood Pressure 173/84 122/56 144/71 O2 Sat by Pulse Oximetry 97 93 L 99 11/27/19 21:05 11/28/19 00:00 11/28/19 04:00 Temperature 97.9 F 97.9 F Pulse Rate 90 100 H 95 H Respiratory Rate 22 20 Blood Pressure 126/58 142/70 O2 Sat by Pulse Oximetry 95 94 L 95 11/28/19 08:00 11/28/19 12:00 11/28/19 16:00 Temperature 98.0 F 98.1 F 98.5 F Pulse Rate 103 H 78 96 H Respiratory Rate 20 20 20 Blood Pressure 140/67 137/65 121/61 O2 Sat by Pulse Oximetry 96 94 L 93 L 11/28/19 20:00 11/28/19 21:37 11/29/19 00:00 Temperature 98.0 F 98.3 F Pulse Rate 93 H 84 100 H Respiratory Rate 20 14 Blood Pressure 170/74 133/60 O2 Sat by Pulse Oximetry 95 99 92 L 11/29/19 04:00 11/29/19 08:00 11/29/19 11:51 Temperature 98.2 F 98.6 F Pulse Rate 88 80 80 Respiratory Rate 20 20 Blood Pressure 148/70 142/68 O2 Sat by Pulse Oximetry 93 L 92 L 93 L 11/29/19 12:00 11/29/19 16:00 11/29/19 20:00 Temperature 97.7 F 97.7 F 98.5 F Pulse Rate 69 69 89 Respiratory Rate 18 18 22 Blood Pressure 143/73 143/73 154/77 O2 Sat by Pulse Oximetry 96 96 96 11/29/19 21:20 11/30/19 00:00 11/30/19 04:00 Temperature 98.1 F 98.6 F Pulse Rate 74 86 70 Respiratory Rate 18 16 Blood Pressure 146/70 152/69 O2 Sat by Pulse Oximetry 98 95 95 Labs: Laboratory Last Values WBC 8.8 X10^3/uL (3.6-10.0) 11/30/19 05:36 RBC 3.37 X10^6/uL (3.5-5.4) L 11/30/19 05:36 Hgb 9.8 g/dL (12.0-16.0) L 11/30/19 05:36 Hct 29.6 % (36.0-47.0) L 11/30/19 05:36 MCV 87.6 fL (80.0-100.0) 11/30/19 05:36 MCH 28.9 pg (27.0-34.0) 11/30/19 05:36 MCHC 33.0 g/dL (33.0-35.0) 11/30/19 05:36 RDW 14.6 % (11.6-16.5) 11/30/19 05:36 Plt Count 200 X10^3/uL (150.0-450.0) 11/30/19 05:36 Plt Count Comment Adequate (ADEQUATE) 11/30/19 05:36 MPV 8.0 fL (7.4-11.0) 11/30/19 05:36 Neut % (Auto) 49.9 % (42.0-75.0) 11/30/19 05:36 Lymph % (Auto) 33.3 % (21.0-51.0) 11/30/19 05:36 [place] % (Auto) 11.8 % (0.0-13.0) 11/30/19 05:36 Eos % (Auto) 4.8 % (0.9-2.9) H 11/30/19 05:36 Baso % (Auto) 0.2 % (0.2-1.0) 11/30/19 05:36 Neut # (Auto) 4.4 x10^3/uL (2.2-4.8) 11/30/19 05:36 Lymph # (Auto) 2.9 X10^3/uL (1.3-2.9) 11/30/19 05:36 [place] # (Auto) 1.0 x10^3/uL (0.3-0.8) H 11/30/19 05:36 Eos # (Auto) 0.4 x10^3/uL (0.0-0.2) H 11/30/19 05:36 Baso # (Auto) 0.0 X10^3/uL (0.0-0.1) 11/30/19 05:36 Absolute Nucleated RBC 0.2 /100WBC 11/30/19 05:36 Total Counted 100 11/30/19 05:36 Neutrophils % (Manual) 53 % (39-76) 11/30/19 05:36 Band Neutrophils % 3 % (0-10) 11/30/19 05:36 Lymphocytes % (Manual) 33 % (13-43) 11/30/19 05:36 Monocytes % (Manual) 8 % (4-9) 11/30/19 05:36 Eosinophils % (Manual) 3 % (0-6) 11/30/19 05:36 Plt Morphology Comment Normal (NORMAL) 11/30/19 05:36 RBC Morphology Normal (NORMAL) 11/30/19 05:36 Sodium 143 mmol/L (136-145) 11/30/19 05:36 Corrected Sodium TNP 11/30/19 05:36 Potassium 3.7 mmol/L (3.5-5.1) 11/30/19 05:36 Chloride 110 mmol/L (98-107) H 11/30/19 05:36 Carbon Dioxide 25.0 mmol/L (21-32) 11/30/19 05:36 BUN 16 mg/dL (7-18) 11/30/19 05:36 Creatinine 0.86 mg/dL (0.55-1.02) 11/30/19 05:36 Est GFR (MDRD) Af Amer > 60 (>60) 11/30/19 05:36 Est GFR (MDRD) Non-Af > 60 (>60) 11/30/19 05:36 Glucose 89 mg/dL (65-99) 11/30/19 05:36 Calcium 8.8 mg/dL (8.5-10.1) 11/30/19 05:36 Corrected Calcium 10.2 mg/dL (8.5-10.1) H 11/30/19 05:36 Total Bilirubin 0.20 mg/dL (0.2-1.0) 11/30/19 05:36 AST 19 Units/L (15-37) 11/30/19 05:36 ALT 28 Units/L (12-78) 11/30/19 05:36 Alkaline Phosphatase 70 Units/L (46-116) 11/30/19 05:36 C-Reactive Protein 16.30 mg/L (0-3.0) H 11/27/19 04:34 Total Protein 5.9 g/dL (6.4-8.2) L 11/30/19 05:36 Albumin 2.2 g/dL (3.4-5.0) L 11/30/19 05:36 Globulin 3.7 g/dL (2.5-4.5) 11/30/19 05:36 Albumin/Globulin Ratio 0.6 Ratio (1.1-2.1) L 11/30/19 05:36 SARS-CoV-2 (PCR) Negative (NEGATIVE) 11/25/19 17:50 Reason For Visit: PNEUMONIA Discharge Date Discharge Date: 11/30/19 Discharge Diagnosis All Active Problems (Updated 11/28/19 @ 21:31 by RA NAGLIN) Hypertension (Acute) GERD (gastroesophageal reflux disease) (Acute) Leukocytosis (Acute) Right foot injury (Acute) Pneumonia (Acute) Plan of Treatment: Continue with present treatment and follow up plan. Pt is to keep follow up appointment as instructed and take medications as ordered. Discharge Medications Discharge Medications: No Known Drug Allergies Allergy (Verified 11/24/19 09:54) CONTINUE taking the following medications escitalopram oxalate 20 mg PO DAILY 11/25/19 [History] Discharge Disposition Discharge Disposition: Home Discharge Condition: Stable
[2019-11-30 08:26] VITALS: BP 111/77
[2019-11-30] MEDS ORDERED: LEXAPRO ONE (08:39)
[2019-11-30] MEDS ORDERED: K-DUR TAB 20 MEQ PO ONE (08:42)
[2019-11-30] MEDS: PEPCID TAB 20 MG PO SCH (09:26)
[2019-11-30] MEDS: LEVAQUIN PREMIX IV 500 MG 500 MG/100 ML BAG IV SCH (09:26)
[2019-11-30] MEDS: ZANAFLEX PO SCH (09:27)
[2019-11-30] MEDS: LOVENOX INJ 40 MG SYR SC SCH (09:27)
[2019-11-30] MEDS: LEXAPRO PO SCH (09:28)
[2019-11-30] MEDS: ZyrTEC TAB 10 MG PO SCH (09:28)
[2019-11-30] MEDS: PriLOSEC PO SCH (09:29)
[2019-11-30] MEDS: SYNTHROID 88 mcg TAB PO SCH (09:29)
[2019-11-30] MEDS: VITAMIN C PO SCH (09:29)
[2019-11-30] MEDS: SOLU-Medrol 40 MG VIAL IVP SCH (09:30)
== END 2019-11-30 11:50 | disposition home or self-care (01) | DRG 195 ==
LOC: ICU 10:58 → MED/SURG 11-26 17:11
PROVIDERS: ADMIT Family Medicine; ATTEND Family Medicine
DX: Z20.828 Contact with and (suspected) exposure to other viral communicable diseases; R06.02 Shortness of breath; R53.1 Weakness; I10 Essential (primary) hypertension; J18.8 Other pneumonia, unspecified organism; R11.2 Nausea with vomiting, unspecified; R26.89 Other abnormalities of gait and mobility; E03.8 Other specified hypothyroidism; K21.9 Gastro-esophageal reflux disease without esophagitis; R79.82 Elevated C-reactive protein (CRP)

== ENCOUNTER 2022-04-01 13:46 | Inpatient (IN) ==
[2022-04-01 14:06] VITALS: BMI 24.1
--- NOTE | 2022-04-01 14:18 | EKG ---
Test Reason : syncopal episode Blood Pressure : */* mmHG Vent. Rate : 86 BPM Atrial Rate : 86 BPM P-R Int : 200 ms QRS Dur : 92 ms QT Int : 382 ms P-R-T Axes : 108 -44 38 degrees QTc Int : 457 ms Normal sinus rhythm Left axis deviation Pulmonary disease pattern Septal infarct , age undetermined Abnormal ECG No previous ECGs available Confirmed by Jalen Woodall ([id number]) on 04/04/2022 8:19:26 AM Referred By: Confirmed By: Jalen Woodall
--- NOTE | 2022-04-01 14:32 | DR.GENAD ---
HPI Time Seen Time Seen by Provider: 04/01/22 14:31 PCP Primary Care Physician: CHANTELL Lei HPI Comment HPI Comment: PATIENT IS 76YR OLD FEMALE IN ER AFTER SHE HAD SYNCOPAL EPISODE GOING INTO THE [facility] STORE IN [place]. PATIENT SAID SHE STARTED NEAR SYNCOPAL FEELING. SHE AT THE DOOR AT [facility] STONE. SHE THEN FAINTED. WHEN SHE BECAME AWARE, PEOPLE WERE STANDING OVER HER. HAD SIMILAR EPISODE BEFORE. SHE FELT HER BP MAY HAVE BEING LOW. HISTORY HTN AND HYPOTHYRIODISM. BP IN TRIAGE 113/56. Complaint/Symptoms Chief Complaint Doctors Comments: SYNCOPAL EPISODE TODAY AT THE STORE. Chief Complaint:: Pt states she was walking in [facility] and started feeling funny and started heading for the door. States she blacked out and came to with people standing over her. States she has done this before and her bp had bottomed out. COVID-19 Coronavirus risk:travel/contact w/high risk person: No Has patient experienced Coronavirus symptoms: No Nurses notes reviewed Nurses Notes Review: Yes Source History Provided: Patient Mode of Arrival Mode of Arrival: Ambulatory Timing Onset of Chief Complaint: 04/01/22 PMH PMH Past Medical History: Yes Past Medical History: Hypertension and Hypothyroidism Past Medical History Comment: Hx of breast cancer Past Surgical History: Yes Surgical History: Hysterectomy Past Surgical History Comment: Foot surgery Family History History of Family Medical Conditions: Yes Family Medical History: Coronary Artery Disease Social History Does any household member use tobacco: No Alcohol Use: None Do you use any recreational Drugs:: No Lives With: Spouse Lives Where: Home Travel Risk Coronavirus risk:travel/contact w/high risk person: No Has patient experienced Coronavirus symptoms: No Infectious screening Have you traveled outside the country in the last 6 months?: No Isolation: Standard ROS Review of Systems Constitutional: Weakness; negative Fever, Fatigue or Loss of Appetite Eyes: No Symptoms Reported ENTM: No Symptoms Reported; negative Nose Discharge or Nose Congestion Respiratoy: No Symptoms Reported; negative Moist Cough, Short of Breath or Wheezing Cardiovascular: No Symptoms Reported; negative Chest Pain, Edema or Palpitations Gastrointestinal/Abdominal: No Symptoms Reported; negative Abdominal Pain, Diar penelope, Nausea or Vomiting Genitourinary: No Symptoms Reported; negative Dysuria, Frequency or Hematuria Neurological: No Symptoms Reported, Weakness and Dizziness; negative Headache Musculoskeletal: No Symptoms Reported; negative Muscle Pain Integumentary: No Symptoms Reported; negative Rash or Juandice Hematologic/Lymphatic: Easy Bruising Endocrine: No Symptoms Reported; negative Unexplained Weight Loss or Failure to Thrive Psychiatric: No Symptoms Reported All Other Systems: Reviewed and Negative PE Vital Signs Vitals: Temperature 98.5 F Pulse Rate 95 Respiratory Rate 16 Blood Pressure [Left Arm] 138/72 Blood Pressure 113/56 O2 Sat by Pulse Oximetry 95 General Limitations: No Limitations General Appearance: Alert and In No Apparent Distress Head Head Exam: Normal Inspection and Atraumatic Eyes Eye exam: Normal Appearance, PERRL and EOMI; negative Scleral Icterus or Conjunctival Injection ENT ENT Exam: Normal Exam, Normal Oropharynx, Normal External Ear Exam and TM's Normal Bilaterally TM/Canal Exam: Bilateral: Normal Throat Exam: negative Tonsillar Erythema, Tonsillomegaly or Tonsillar Exudate Neck Neck Exam: Normal Inspection and Trachea Midline; negative Tenderness Chest Chest Inspection: Normal Inspection and Symmetric Chest Wall Rise; negative Tenderness Respiratory Respiratory Exam: Normal Lung Sounds Bilat; negative Accessory Muscle Use, Chest Wall Tenderness or Respiratory Distress Respiratory Exam: Bilateral: Rhonchi Cardiovascular Cardiovascular Exam: Regular Rate, Normal Rhythm and Normal Heart Sounds; negative Systolic Murmur or Diastolic Murmur Abdominal Exam Abdominal Exam: Normal Inspection, Normal Bowel Sounds and Soft; negative Tenderness Extremities Extremities Exam: Normal Inspection and Normal Capillary Refill Back Back Exam: Normal Inspection; negative (R) CVA Tenderness or (L) CVA Tenderness Neurologic Neurological Exam: Alert, Oriented X3, CN II-XII Intact, Normal Gait and Reflexes Normal; negative Motor Sensory Deficit Psychiatric Psychiatric Exam: Normal Affect and Normal Mood Skin Skin Exam: Intact MDM Differential Diagnosis Differential Diagnosis: SYNCOPAL EPISODE. COURSE Treatment Treatment: SEE ORDERS DONE WHILE PATIENT WAS IN ER. Consultation Consultation Comments: DISCUSSED PATIENT WITH DR. ESCALERA. HE WILL ADMIT PATIENT. Education/Counseling Education/Counseling: Patient and Family Educated On: Diagnosis ROR Labs Reviewed Laboratory Results Reviewed?: Yes Result Diagrams: 04/03/22 05:05 04/03/22 05:05 Laboratory: 04/01/22 15:24 Urine,Clean Catch Urine Culture - Final WBC 11.9 X10^3/uL (3.6-10.0) H 04/01/22 14:27 RBC 4.42 X10^6/uL (3.5-5.4) 04/01/22 14:27 Hgb 12.7 g/dL (12.0-16.0) 04/01/22 14: Hct 38.6 % (36.0-47.0) 04/01/22 14: MCV 87.4 fL (80.0-100.0) 04/01/22 14: MCH 28.7 pg (27.0-34.0) 04/01/22 14: MCHC 32.9 g/dL (33.0-35.0) L 04/01/22 14: RDW 13.7 % (11.6-16.5) 04/01/22 14: Plt Count 243 X10^3/uL (150.0-450.0) 04/01/22 14: MPV 8.7 fL (7.4-11.0) 04/01/22 14: Neut % (Auto) 76.1 % (42.0-75.0) H 04/01/22 14: Lymph % (Auto) 11.6 % (21.0-51.0) L 04/01/22 14: [place] % (Auto) 11.2 % (0.0-13.0) 04/01/22 14: Eos % (Auto) 0.6 % (0.9-2.9) L 04/01/22 14: Baso % (Auto) 0.5 % (0.2-1.0) 04/01/22 14: Neut # (Auto) 9.1 x10^3/uL (2.2-4.8) H 04/01/22 14: Lymph # (Auto) 1.4 X10^3/uL (1.3-2.9) 04/01/22 14: [place] # (Auto) 1.3 x10^3/uL (0.3-0.8) H 04/01/22 14: Eos # (Auto) 0.1 x10^3/uL (0.0-0.2) 04/01/22 14: Baso # (Auto) 0.1 X10^3/uL (0.0-0.1) 04/01/22 14: Absolute Nucleated RBC 0.0 /100WBC 04/01/22 14:27 Sodium 136 mmol/L (136-145) 04/01/22 14:27 Corrected Sodium 138 mmol/L (136-145) 04/01/22 14:27 Potassium 3.5 mmol/L (3.5-5.1) 04/01/22 14:27 Chloride 101 mmol/L (98-107) 04/01/22 14:27 Carbon Dioxide 24.6 mmol/L (21-32) 04/01/22 14:27 BUN 12 mg/dL (7-18) 04/01/22 14:27 Creatinine 0.93 mg/dL (0.55-1.02) 04/01/22 14:27 Est GFR (MDRD) Af Amer > 60 (>60) 04/01/22 14:27 Est GFR (MDRD) Non-Af > 60 (>60) 04/01/22 14:27 Glucose 168 mg/dL (65-99) H 04/01/22 14:27 Calcium 9.1 mg/dL (8.5-10.1) 04/01/22 14:27 Corrected Calcium 9.8 mg/dL (8.5-10.1) 04/01/22 14:27 Total Bilirubin 0.40 mg/dL (0.2-1.0) 04/01/22 14:27 AST 16 Units/L (15-37) 04/01/22 14:27 ALT 11 Units/L (12-78) L 04/01/22 14:27 Alkaline Phosphatase 100 Units/L (46-116) 04/01/22 14:27 Creatine Kinase 55 Units/L (26-192) 04/01/22 14:27 Troponin I High Sens 8.0 ng/L (4.0-60.0) 04/01/22 14:27 Total Protein 6.8 g/dL (6.4-8.2) 04/01/22 14:27 Albumin 3.1 g/dL (3.4-5.0) L 04/01/22 14:27 Globulin 3.7 g/dL (2.5-4.5) 04/01/22 14:27 Albumin/Globulin Ratio 0.8 Ratio (1.1-2.1) L 04/01/22 14:27 Specimen Type Clean catch urine 04/01/22 15:24 Urine Color Yellow (YELLOW) 04/01/22 15:24 Urine Appearance Clear (CLEAR) 04/01/22 15:24 Urine pH 6.0 (5.0 - 8.0) 04/01/22 15:24 Ur Specific [place] 1.020 (1.000-1.030) 04/01/22 15:24 Urine Protein 2+ (NEGATIVE) 04/01/22 15:24 Urine Glucose (UA) Negative (NEGATIVE) 04/01/22 15:24 Urine Ketones Negative (NEGATIVE) 04/01/22 15:24 Urine Blood 1+ (NEGATIVE) 04/01/22 15:24 Urine Nitrite Negative (NEGATIVE) 04/01/22 15:24 Urine Bilirubin Negative (NEGATIVE) 04/01/22 15:24 Urine Urobilinogen 2+ (NORMAL) 04/01/22 15:24 Ur Leukocyte Esterase 1+ (NEGATIVE) 04/01/22 15:24 Urine RBC 3-5 /HPF (0-3) A 04/01/22 15:24 Urine WBC 3-5 /HPF (0-5) 04/01/22 15:24 Ur Squamous Epith Cells Few /HPF (NEGATIVE) 04/01/22 15:24 Urine Bacteria Trace /HPF (NEGATIVE) 04/01/22 15:24 Urine Mucus Many /HPF (NEGATIVE) 04/01/22 15:24 Ur Culture Indicated? No/not indicated 04/01/22 15:24 XRAY XRAY Interpreted by: Radiologist (REPORT NOTED.) and Self Opioid Opioid Risk Tool Age (Eliud box if 16-45): No History of Preadolescent Sexual Abuse: No Total: 0 Total Score Risk Category: Low Risk Copyright: Joseph VILLAGRAN predicting aberrant behaviors Discharge Plan Diagnosis Discharge Problem: Episode of syncope, Dehydration, UTI (urinary tract infection) Discharge Plan Patient Disposition: ADMITTED INPATIENT Condition: Stable
[2022-04-01 14:38] LABS: BASOPHILS # (AUTO) 0.1 X10^3/uL (0.0-0.1); BASOPHILS % (AUTO) 0.5 % (0.2-1.0); EOSINOPHILS # (AUTO) 0.1 x10^3/uL (0.0-0.2); EOSINOPHILS % (AUTO) 0.6 % (0.9-2.9); HEMATOCRIT 38.6 % (36.0-47.0); HEMOGLOBIN 12.7 g/dL (12.0-16.0); LYMPHOCYTES # (AUTO) 1.4 X10^3/uL (1.3-2.9); LYMPHOCYTES % (AUTO) 11.6 % (21.0-51.0); MEAN CORPUSCULAR HEMOGLOBIN 28.7 pg (27.0-34.0); MEAN CORPUSCULAR HGB CONC 32.9 g/dL (33.0-35.0); MEAN CORPUSCULAR VOLUME 87.4 fL (80.0-100.0); MEAN PLATELET VOLUME 8.7 fL (7.4-11.0); MONOCYTES # (AUTO) 1.3 x10^3/uL (0.3-0.8); MONOCYTES % (AUTO) 11.2 % (0.0-13.0); NEUTROPHILS # (AUTO) 9.1 x10^3/uL (2.2-4.8); NEUTROPHILS % (AUTO) 76.1 % (42.0-75.0); RED BLOOD COUNT 4.42 X10^6/uL (3.5-5.4); RED CELL DISTRIBUTION WIDTH 13.7 % (11.6-16.5); WHITE BLOOD COUNT 11.9 X10^3/uL (3.6-10.0)
[2022-04-01 14:51] LABS: ALANINE AMINOTRANSFERASE 11 Units/L (12-78); ALBUMIN 3.1 g/dL (3.4-5.0); ALKALINE PHOSPHATASE 100 Units/L (46-116); ASPARTATE AMINO TRANSFERASE 16 Units/L (15-37); BLOOD UREA NITROGEN 12 mg/dL (7-18); CALCIUM 9.1 mg/dL (8.5-10.1); CARBON DIOXIDE 24.6 mmol/L (21-32); CHLORIDE 101 mmol/L (98-107); COR CA(FOR HYPOALB) 9.8 mg/dL (8.5-10.1); COR NA(FOR HYPERGLY) 138 mmol/L (136-145); CREATINE KINASE 55 Units/L (26-192); CREATININE 0.93 mg/dL (0.55-1.02); SODIUM 136 mmol/L (136-145); TOTAL PROTEIN 6.8 g/dL (6.4-8.2); eGFR NON BLACK RACES > 60 (>60)
--- NOTE | 2022-04-01 15:07 | CT ---
HISTORYSYNCOPESTUDYBRAIN W/O CONCOMPARISONNone available.TECHNIQUEAxial non-contrast images of the head were obtained with coronal and sagittal reformats provided.Radiation dose: 893.84 mGy-cm total DLPFINDINGSNo abnormal areas of acute attenuation in the brain parenchyma.Chakraborty-white differentiation remains intact.No intracranial, extra-axial, fluid collection.No hemorrhage.Periventricular chronic microvascular disease.No mass, mass effect or midline shift.Age related brain parenchymal global atrophy.No ventriculomegaly.No acute fracture.Sinuses are well aerated.Mastoid air cells are well aerated.Globes and intra-orbital contents are unremarkable.IMPRESSIONNo acute intracranial abnormality identified.Electronically signed by: Skyler Gracia (Apr 01, 2022 15:05:56)
[2022-04-01 15:38] LABS: BILIRUBIN,URINE NEGATIVE (NEGATIVE); BLOOD/HEMOGLOBIN,URINE 1+ (NEGATIVE); GLUCOSE, URINE NEGATIVE (NEGATIVE); KETONES,URINE NEGATIVE (NEGATIVE); LEUKOCYTE ESTERASE ,URINE 1+ (NEGATIVE); NITRITES,URINE NEGATIVE (NEGATIVE); PROTEIN,URINE 2+ (NEGATIVE); UROBILINOGEN,URINE 2+ (NORMAL)
[2022-04-01 15:46] LABS: APPEARANCE,URINE CLEAR (CLEAR); BACTERIA,URINE TRACE /HPF (NEGATIVE); COLOR,URINE YELLOW (YELLOW); SQUAMOUS EPITHELIAL CELL,UR FEW /HPF (NEGATIVE)
--- NOTE | 2022-04-01 16:58 | RAD ---
HISTORYSYNCOPE HX HTN, BREAST CA. SX HYST, ORTHO, RT MASTSTUDYCHEST, 1 VIEWCOMPARISONNone availableFINDINGSTrachea is midline. There is mild cardiomegaly, there is a large retrocardiac hiatal hernia. Surgical clips in the right axillary region. No evidence of focal pneumonia, no pneumothorax or pleural effusions. Osseus structures are unremarkable.Prominence of the left hilum probably crossing vessels. Follow with a lateral view could be helpful.IMPRESSIONNo acute cardiopulmonary findings .Electronically signed by: Jessica Sadler (Apr 01, 2022 16:56:54)
[2022-04-01] MEDS ORDERED: ROCEPHIN VIAL 1 GRAM 1 G in NS 100 ML IV 100 ML IV ONE (17:30)
[2022-04-01] MEDS ORDERED: NS 1,000 ML IV 1,000 ML ONE (18:39)
[2022-04-01] MEDS ORDERED: ROCEPHIN VIAL 1 GRAM ONE (18:39)
[2022-04-01] MEDS ORDERED: NS 100 ML IV 100 ML ONE (18:40)
[2022-04-01] MEDS: NS 1,000 ML IV 1,000 ML IV SCH (18:50)
[2022-04-01] MEDS ORDERED: TYLENOL 325 MG TAB PO ONE (21:09)
[2022-04-01] MEDS: TYLENOL 325 MG TAB PO PRN (21:16)
[2022-04-02 02:46] LABS: BASOPHILS % (AUTO) 0.3 % (0.2-1.0); EOSINOPHILS # (AUTO) 0.1 x10^3/uL (0.0-0.2); EOSINOPHILS % (AUTO) 1.1 % (0.9-2.9); HEMOGLOBIN 11.6 g/dL (12.0-16.0); LYMPHOCYTES # (AUTO) 2.5 X10^3/uL (1.3-2.9); LYMPHOCYTES % (AUTO) 23.9 % (21.0-51.0); MEAN CORPUSCULAR HEMOGLOBIN 28.9 pg (27.0-34.0); MEAN CORPUSCULAR HGB CONC 33.1 g/dL (33.0-35.0); MEAN CORPUSCULAR VOLUME 87.3 fL (80.0-100.0); MEAN PLATELET VOLUME 8.4 fL (7.4-11.0); MONOCYTES # (AUTO) 1.6 x10^3/uL (0.3-0.8); MONOCYTES % (AUTO) 15.3 % (0.0-13.0); NEUTROPHILS # (AUTO) 6.1 x10^3/uL (2.2-4.8); NEUTROPHILS % (AUTO) 59.4 % (42.0-75.0); RED BLOOD COUNT 4.01 X10^6/uL (3.5-5.4); RED CELL DISTRIBUTION WIDTH 13.5 % (11.6-16.5); WHITE BLOOD COUNT 10.3 X10^3/uL (3.6-10.0)
[2022-04-02 03:09] LABS: ALANINE AMINOTRANSFERASE 10 Units/L (12-78); ALBUMIN 2.6 g/dL (3.4-5.0); ALKALINE PHOSPHATASE 82 Units/L (46-116); ASPARTATE AMINO TRANSFERASE 12 Units/L (15-37); BLOOD UREA NITROGEN 10 mg/dL (7-18); CALCIUM 8.7 mg/dL (8.5-10.1); CARBON DIOXIDE 24.5 mmol/L (21-32); CHLORIDE 105 mmol/L (98-107); COR CA(FOR HYPOALB) 9.8 mg/dL (8.5-10.1); CREATININE 0.76 mg/dL (0.55-1.02); SODIUM 138 mmol/L (136-145); eGFR NON BLACK RACES > 60 (>60)
--- NOTE | 2022-04-02 05:06 | RAD ---
HISTORYSYNCOPE Relevant Clinical InformationSTUDCHRISTINE CLARKE/LAT [id number] trachea is midline. The cardiac silhouette is mildly enlarged.The lungs are clear without focal infiltrate or effusion. The bony thorax is unremarkable.IMPRESSIONMild cardiomegalyNo active cardiopulmonary disease.Electronically signed by: Figueroa Holly (Apr 02, 2022 05:05:46)
[2022-04-02] MEDS ORDERED: MICRO K EXTEN CAP 10 MEQ PO PRN (07:15)
[2022-04-02] MEDS ORDERED: K-RIDER 10 MEQ/NS 100 ML 10 MEQ/100 ML BAG IV PRN (07:15)
[2022-04-02] MEDS ORDERED: POTASSIUM CHL 60 MEQ/NS 0.45% 500 ML IV PRN (07:15)
[2022-04-02] MEDS ORDERED: POTASSIUM CHL 40 MEQ/NS 0.45% 500 ML IV PRN (07:15)
[2022-04-02] MEDS ORDERED: POTASSIUM CHLORIDE LIQ 20 MEQ UDC PO PRN (07:15)
[2022-04-02] MEDS ORDERED: KLOR-CON PO PRN (07:15)
[2022-04-02] MEDS: K-DUR TAB 20 MEQ PO PRN (08:22)
[2022-04-02] MEDS: NS 1,000 ML IV 1,000 ML IV SCH (08:23)
[2022-04-02] MEDS ORDERED: PHARMACY CONSULT - LOVENOX XX SCH (09:00)
[2022-04-02] MEDS: LOVENOX INJ 40 MG SYR SC SCH (09:04)
--- NOTE | 2022-04-02 11:31 | CT ---
HISTORYELEVATED D-DIMERSTUDYCTA CHESTCOMPARISONNoneTECHNIQUEMultiple axial images of the chest were obtained from the thoracic inlet to the upper abdomen after the administration of IV contrast. 3D reconstructions utilizing axial MIPS imaging was performed and reviewed. Dose reduction techniques including Automated Exposure Control (AEC) and adjustment of mA and kV were utilized.FINDINGSNo pneumothorax or effusion. Scattered ground-glass opacities in the lungs.No evidence of pulmonary embolism.The heart is normal in size. Coronary and aortic calcifications. No mediastinal adenopathy. Moderate hiatal hernia.No acute osseous abnormality. Mild multilevel degenerative changes in the visualized spine.Limited visualized portions of the upper abdomen demonstrate no acute process.IMPRESSIONNo evidence of pulmonary embolism.Faint ground-glass opacities in the lungs which may reflect atelectasis. Infectious process felt less likely.Electronically signed by: SHE JAIN (Apr 02, 2022 11:29:31)
--- NOTE | 2022-04-02 12:57 | CT ---
ABDOMEN/PELVIS W/O CONHISTORY: ABD PAINComparison:NoneTechnique:Multiple non contrast axial images of the abdomen and pelvis were obtained from the lung bases to the pubic symphysis.. Dose reduction techniques including Automated Exposure Control (AEC) and adjustment of mA and kV were utlized.Findings:The sensitivity for focal lesion detection within the solid abdominal viscera is diminished without the use of IV contrast.The heart is normal in size. There is no pericardial effusion. Lung bases are clear without focal consolidation, pleural effusion or pneumothorax. Large hiatal hernia.Liver and spleen are normal in size, contour. No focal lesions. No ductal dilitation. Gallbladder is present. No calcified gallstones or gallbladder wall thickening. Significant pancreatic atrophy. Adrenal glands are normal. Kidneys are without hydronephrosis or nephrolithiasis.Extensive inflammatory change in the region of the left lower quadrant/sigmoid colon where there are multiple diverticuli. Questionable tiny focus of extraluminal air for example on series 11, image 27 and series 5, image 68. no abnormal appearing mesenteric or retroperitoneal lymph nodes. . No free fluid or fluid collections.The bladder is normal in appearance. Uterus absent. No free fluid or abnormal pelvic lymph nodes.No aggressive osseous lesions. Chronic appearing compression deformity of L5.IMPRESSION:1.Acute diverticulitis of left lower quadrant sigmoid colon with questionable small contained perforation.Electronically signed by: CORI MORAN (Apr 02, 2022 12:55:54)
[2022-04-02] MEDS: FLAGYL IV PREMIX 500 MG BAG 500 MG/100 ML BAG IV SCH ×2 (15:50→21:32)
[2022-04-02] MEDS: D5 1/2 NS 1,000 ML 1,000 ML IV SCH (17:35)
[2022-04-02] MEDS: PROTONIX INJ 40 MG VIAL IVP SCH ×2 (17:35→20:13)
[2022-04-02] MEDS ORDERED: MORPHINE SULFATE INJ 2 MG INJ IVP PRN (19:45)
[2022-04-02] MEDS: CIPRO IV 400 MG PREMIX* 400 MG/200 ML IV.SOLN. IV SCH (20:12)
[2022-04-02] MEDS: ZANAFLEX PO PRN (20:13)
[2022-04-03] MEDS: D5 1/2 NS 1,000 ML 1,000 ML IV SCH ×2 (02:00→14:42)
[2022-04-03] MEDS: FLAGYL IV PREMIX 500 MG BAG 500 MG/100 ML BAG IV SCH ×4 (02:28→21:14)
[2022-04-03 05:35] LABS: BASOPHILS # (AUTO) 0.1 X10^3/uL (0.0-0.1); BASOPHILS % (AUTO) 0.8 % (0.2-1.0); EOSINOPHILS # (AUTO) 0.4 x10^3/uL (0.0-0.2); HEMATOCRIT 31.1 % (36.0-47.0); HEMOGLOBIN 10.2 g/dL (12.0-16.0); LYMPHOCYTES % (AUTO) 31.7 % (21.0-51.0); MEAN CORPUSCULAR HEMOGLOBIN 28.9 pg (27.0-34.0); MEAN CORPUSCULAR HGB CONC 32.9 g/dL (33.0-35.0); MEAN CORPUSCULAR VOLUME 87.7 fL (80.0-100.0); MEAN PLATELET VOLUME 8.6 fL (7.4-11.0); MONOCYTES # (AUTO) 0.8 x10^3/uL (0.3-0.8); MONOCYTES % (AUTO) 12.6 % (0.0-13.0); NEUTROPHILS # (AUTO) 3.1 x10^3/uL (2.2-4.8); NEUTROPHILS % (AUTO) 48.9 % (42.0-75.0); RED BLOOD COUNT 3.54 X10^6/uL (3.5-5.4); RED CELL DISTRIBUTION WIDTH 13.8 % (11.6-16.5); WHITE BLOOD COUNT 6.4 X10^3/uL (3.6-10.0)
[2022-04-03 05:51] LABS: ALANINE AMINOTRANSFERASE 13 Units/L (12-78); ALBUMIN 2.2 g/dL (3.4-5.0); ALKALINE PHOSPHATASE 69 Units/L (46-116); ASPARTATE AMINO TRANSFERASE 17 Units/L (15-37); BLOOD UREA NITROGEN 8 mg/dL (7-18); CALCIUM 8.4 mg/dL (8.5-10.1); CARBON DIOXIDE 26.5 mmol/L (21-32); CHLORIDE 107 mmol/L (98-107); COR CA(FOR HYPOALB) 9.8 mg/dL (8.5-10.1); COR NA(FOR HYPERGLY) 139 mmol/L (136-145); CREATININE 0.65 mg/dL (0.55-1.02); SODIUM 139 mmol/L (136-145); TOTAL PROTEIN 5.3 g/dL (6.4-8.2); eGFR NON BLACK RACES > 60 (>60)
--- NOTE | 2022-04-03 08:31 | DR.H&P ---
H&P History & Physical for Day of: H&P Date: 04/02/22 Chief Complaint Chief Complaint: Syncope Allergies Allergies Allergy/AdvReac Type Severity Reaction Status Date / Time No Known Drug Allergies Allergy Unknown Verified 04/02/22 07:15 History of Present Illness History of Present Illness: Pt is a 76 year old female presenting after having syncopal episode at [facility]. She reports feeling "off" will she was in the store and tried to quickly leave but as she went outside she "passed out". Pt regained consciousness immediately after and was taken to ED for further evaluation. She denies any diaphoresis, chest pain, shortness of breath. She does reports some left lower quadrant abdominal pain. Labs/imaging: Wbc 10.3, Hgb 11.6, Plt 219, Na 138, K 3.7, Creatinine 0.76, Glucose 107, D-dimer 0.92, cardiac enzymes negative x3, CT brain:no acute intracranial abnormalities, CXR: no acute cardiopulmonary findings, UA: positive for trace blood, 1+ leuks, and trace b acteria, Will order urine culture. Pt was started on IVF NS@75ml/h, and will start on antibiotics IV Rocephin while awaiting culture results. Will get CTA chest due to syncopal episode and elevated D-dimer. Order CT abdomen and pelvis for left lower quadrant pain. Restart home medications. Continue to closely monitor and follow up labs/imaging. Past Medical History Past Medical History: Hypertension and Hypothyroidism Past Surgical History Surgical History: [employer] Surgery, Hysterectomy, Mastectomy and Ortho Surgery Family History Family Medical History: Coronary Artery Disease Social History Does any household member use tobacco: No Alcohol Use: None Drug Use: None Medications Home Medications: No Known Drug Allergies Allergy (Unknown, Verified 04/02/22 07:15) CONTINUE taking the following medications escitalopram oxalate 20 mg tablet 20 mg PO QDAY 04/01/22 [History] levothyroxine 88 mcg tablet 88 mcg PO QDAY 04/01/22 [History] losartan 100 mg tablet 100 mg PO BID 04/01/22 [History] omeprazole 40 mg capsule,delayed release 40 mg PO QDAY 04/01/22 [History] rosuvastatin 20 mg tablet 20 mg PO HS 04/01/22 [History] tizanidine 4 mg tablet 4 mg PO HS 04/01/22 [History] tizanidine 4 mg tablet 2 mg PO BID 04/02/22 [History] Labs Result Diagrams: 04/03/22 05:05 04/03/22 05:05 Labs: Laboratory WBC 10.3 X10^3/uL (3.6-10.0) H 04/02/22 02:18 RBC 4.01 X10^6/uL (3.5-5.4) 04/02/22 02:18 Hgb 11.6 g/dL (12.0-16.0) L 04/02/22 02:18 Hct 35.0 % (36.0-47.0) L 04/02/22 02:18 MCV 87.3 fL (80.0-100.0) 04/02/22 02:18 MCH 28.9 pg (27.0-34.0) 04/02/22 02:18 MCHC 33.1 g/dL (33.0-35.0) 04/02/22 02:18 RDW 13.5 % (11.6-16.5) 04/02/22 02:18 Plt Count 219 X10^3/uL (150.0-450.0) 04/02/22 02:18 MPV 8.4 fL (7.4-11.0) 04/02/22 02:18 Neut % (Auto) 59.4 % (42.0-75.0) 04/02/22 02:18 Lymph % (Auto) 23.9 % (21.0-51.0) 04/02/22 02:18 [place] % (Auto) 15.3 % (0.0-13.0) H 04/02/22 02:18 Eos % (Auto) 1.1 % (0.9-2.9) 04/02/22 02:18 Baso % (Auto) 0.3 % (0.2-1.0) 04/02/22 02:18 Neut # (Auto) 6.1 x10^3/uL (2.2-4.8) H 04/02/22 02:18 Lymph # (Auto) 2.5 X10^3/uL (1.3-2.9) 04/02/22 02:18 [place] # (Auto) 1.6 x10^3/uL (0.3-0.8) H 04/02/22 02:18 Eos # (Auto) 0.1 x10^3/uL (0.0-0.2) 04/02/22 02:18 Baso # (Auto) 0.0 X10^3/uL (0.0-0.1) 04/02/22 02:18 Absolute Nucleated RBC 0.0 /100WBC 04/02/22 02:18 D-Dimer 0.92 ug/ml (0.0-0.57) H 04/01/22 20:26 Sodium 138 mmol/L (136-145) 04/02/22 02:18 Corrected Sodium TNP 04/02/22 02:18 Potassium 3.7 mmol/L (3.5-5.1) 04/02/22 02:18 Chloride 105 mmol/L (98-107) 04/02/22 02:18 Carbon Dioxide 24.5 mmol/L (21-32) 04/02/22 02:18 BUN 10 mg/dL (7-18) 04/02/22 02:18 Creatinine 0.76 mg/dL (0.55-1.02) 04/02/22 02:18 Est GFR (MDRD) Af Amer > 60 (>60) 04/02/22 02:18 Est GFR (MDRD) Non-Af > 60 (>60) 04/02/22 02:18 Glucose 107 mg/dL (65-99) H 04/02/22 02:18 Calcium 8.7 mg/dL (8.5-10.1) 04/02/22 02:18 Corrected Calcium 9.8 mg/dL (8.5-10.1) 04/02/22 02:18 Total Bilirubin 0.50 mg/dL (0.2-1.0) 04/02/22 02:18 AST 12 Units/L (15-37) L 04/02/22 02:18 ALT 10 Units/L (12-78) L 04/02/22 02:18 Alkaline Phosphatase 82 Units/L (46-116) 04/02/22 02:18 Creatine Kinase 49 Units/L (26-192) 04/02/22 02:18 Troponin I High Sens 8.7 ng/L (4.0-60.0) 04/02/22 02:18 Total Protein 6.0 g/dL (6.4-8.2) L 04/02/22 02:18 Albumin 2.6 g/dL (3.4-5.0) L 04/02/22 02:18 Globulin 3.4 g/dL (2.5-4.5) 04/02/22 02:18 Albumin/Globulin Ratio 0.8 Ratio (1.1-2.1) L 04/02/22 02:18 Specimen Type Clean catch urine 04/01/22 15:24 Urine Color Yellow (YELLOW) 04/01/22 15:24 Urine Appearance Clear (CLEAR) 04/01/22 15:24 Urine pH 6.0 (5.0 - 8.0) 04/01/22 15:24 Ur Specific [place] 1.020 (1.000-1.030) 04/01/22 15:24 Urine Protein 2+ (NEGATIVE) 04/01/22 15:24 Urine Glucose (UA) Negative (NEGATIVE) 04/01/22 15:24 Urine Ketones Negative (NEGATIVE) 04/01/22 15:24 Urine Blood 1+ (NEGATIVE) 04/01/22 15:24 Urine Nitrite Negative (NEGATIVE) 04/01/22 15:24 Urine Bilirubin Negative (NEGATIVE) 04/01/22 15:24 Urine Urobilinogen 2+ (NORMAL) 04/01/22 15:24 Ur Leukocyte Esterase 1+ (NEGATIVE) 04/01/22 15:24 Urine RBC 3-5 /HPF (0-3) A 04/01/22 15:24 Urine WBC 3-5 /HPF (0-5) 04/01/22 15:24 Ur Squamous Epith Cells Few /HPF (NEGATIVE) 04/01/22 15:24 Urine Bacteria Trace /HPF (NEGATIVE) 04/01/22 15:24 Urine Mucus Many /HPF (NEGATIVE) 04/01/22 15:24 Ur Culture Indicated? No/not indicated 04/01/22 15:24 SARS-CoV-2 (PCR) Negative (NEGATIVE) 04/02/22 13:40 Influenza Type A (PCR) Negative (NEGATIVE) 04/02/22 13:40 Influenza Type B (PCR) Negative (NEGATIVE) 04/02/22 13:40 RSV (PCR) Negative (NEGATIVE) 04/02/22 13:40 Review of Systems Constitutional: No Symptoms Reported Eyes: No Symptoms Reported ENT: No Symptoms Reported Respiratory: No Symptoms Reported Cardiovascular: No Symptoms Reported Gastrointestinal: See HPI and Abdominal Pain Genitourinary: No Symptoms Reported Musculoskeletal: No Symptoms Reported Skin: No Symptoms Reported Neurological: No Symptoms Reported Physical Exam Vital Signs: Temperature 98.6 F Pulse Rate [Left Radial] 76 Pulse Rate 95 Respiratory Rate 20 Blood Pressure [Right Arm] 151/65 Blood Pressure [Left Arm] 121/57 Blood Pressure 113/56 O2 Sat by Pulse Oximetry 95 Oriented: Normal Eyes: Normal Ear: Normal Nose: Normal Throat: Normal Respiratory: Clear Throughout Cardiovascular: Normal : Normal Auscultation: Bowel Sounds: Normal Palpation: Normal Tenderness: LLQ Skin: Normal Musculoskeletal: Normal Psychiatric: Normal Mood Description: Calm and Appropriate Affect: Normal Speech Pattern: Clear and Appropriate Assessment/Plan (1) Syncopal episodes: Status: Acute (2) Acute UTI: Status: Acute (3) Abdominal pain: Status: Acute Review H&P Reviewed: Yes Patient was examined?: Yes
[2022-04-03] MEDS: PROTONIX INJ 40 MG VIAL IVP SCH ×2 (09:07→21:17)
[2022-04-03] MEDS: LOVENOX INJ 40 MG SYR SC SCH (09:07)
[2022-04-03] MEDS: CIPRO IV 400 MG PREMIX* 400 MG/200 ML IV.SOLN. IV SCH ×2 (10:33→21:10)
[2022-04-03] MEDS: TYLENOL 325 MG TAB PO PRN (17:10)
--- NOTE | 2022-04-03 18:06 | DR.PROGNOT ---
HOSPITAL PROGRESS NOTE Progress Note for Day of: Progress Note Date: 04/03/22 Chief Complaint Chief Complaint: Lt side abdominal pain is better today . no nausea or vomiting . normal WBC . afebrile . Past Medical Family Social History Past Med/Fam/Surg Hx: No changes since H&P Allergies: Allergies No Known Drug Allergies Allergy (Unknown, Verified 04/02/22 07:15) Onset Date: 10/12/2013 Review Of Systems ROS: No change since H&P Vital Signs Vital Signs: Temperature 99.1 F Pulse Rate [Left Radial] 61 Pulse Rate 95 Respiratory Rate 20 Blood Pressure [Right Arm] 131/60 Blood Pressure [Left Arm] 128/60 Blood Pressure 113/56 O2 Sat by Pulse Oximetry 93 Physical Exam Oriented: Normal Eyes: Normal Ear: Normal Nose: Normal Throat: Normal Cardiovascular: Normal : Normal GI:Auscultation: Normal GI:Palpation: Normal GI: Tenderness: LUQ and LLQ (soft , flat abdomen , no rebound . BS+) Skin: Normal Musculoskeletal: Normal Psychiatric: Normal Mood Description: Calm and Appropriate Affect: Normal Speech Pattern: Clear Laboratory and Diagnostics Result Diagrams: 04/03/22 05:05 04/03/22 05:05 Labs: 04/01/22 15:24 Urine,Clean Catch Urine Culture - Final Laboratory WBC 6.4 X10^3/uL (3.6-10.0) 04/03/22 05:05 RBC 3.54 X10^6/uL (3.5-5.4) 04/03/22 05:05 Hgb 10.2 g/dL (12.0-16.0) L 04/03/22 05:05 Hct 31.1 % (36.0-47.0) L 04/03/22 05:05 MCV 87.7 fL (80.0-100.0) 04/03/22 05:05 MCH 28.9 pg (27.0-34.0) 04/03/22 05:05 MCHC 32.9 g/dL (33.0-35.0) L 04/03/22 05:05 RDW 13.8 % (11.6-16.5) 04/03/22 05:05 Plt Count 198 X10^3/uL (150.0-450.0) 04/03/22 05:05 MPV 8.6 fL (7.4-11.0) 04/03/22 05:05 Neut % (Auto) 48.9 % (42.0-75.0) 04/03/22 05:05 Lymph % (Auto) 31.7 % (21.0-51.0) 04/03/22 05:05 [place] % (Auto) 12.6 % (0.0-13.0) 04/03/22 05:05 Eos % (Auto) 6.0 % (0.9-2.9) H 04/03/22 05:05 Baso % (Auto) 0.8 % (0.2-1.0) 04/03/22 05:05 Neut # (Auto) 3.1 x10^3/uL (2.2-4.8) 04/03/22 05:05 Lymph # (Auto) 2.0 X10^3/uL (1.3-2.9) 04/03/22 05:05 [place] # (Auto) 0.8 x10^3/uL (0.3-0.8) 04/03/22 05:05 Eos # (Auto) 0.4 x10^3/uL (0.0-0.2) H 04/03/22 05:05 Baso # (Auto) 0.1 X10^3/uL (0.0-0.1) 04/03/22 05:05 Absolute Nucleated RBC 0.1 /100WBC 04/03/22 05:05 D-Dimer 0.92 ug/ml (0.0-0.57) H 04/01/22 20:26 Sodium 139 mmol/L (136-145) 04/03/22 05:05 Corrected Sodium 139 mmol/L (136-145) 04/03/22 05:05 Potassium 4.1 mmol/L (3.5-5.1) 04/03/22 05:05 Chloride 107 mmol/L (98-107) 04/03/22 05:05 Carbon Dioxide 26.5 mmol/L (21-32) 04/03/22 05:05 BUN 8 mg/dL (7-18) 04/03/22 05:05 Creatinine 0.65 mg/dL (0.55-1.02) 04/03/22 05:05 Est GFR (MDRD) Af Amer > 60 (>60) 04/03/22 05:05 Est GFR (MDRD) Non-Af > 60 (>60) 04/03/22 05:05 Glucose 117 mg/dL (65-99) H 04/03/22 05:05 Calcium 8.4 mg/dL (8.5-10.1) L 04/03/22 05:05 Corrected Calcium 9.8 mg/dL (8.5-10.1) 04/03/22 05:05 Total Bilirubin 0.40 mg/dL (0.2-1.0) 04/03/22 05:05 AST 17 Units/L (15-37) 04/03/22 05:05 ALT 13 Units/L (12-78) 04/03/22 05:05 Alkaline Phosphatase 69 Units/L (46-116) 04/03/22 05:05 Creatine Kinase 49 Units/L (26-192) 04/02/22 02:18 Troponin I High Sens 8.7 ng/L (4.0-60.0) 04/02/22 02:18 Total Protein 5.3 g/dL (6.4-8.2) L 04/03/22 05:05 Albumin 2.2 g/dL (3.4-5.0) L 04/03/22 05:05 Globulin 3.1 g/dL (2.5-4.5) 04/03/22 05:05 Albumin/Globulin Ratio 0.7 Ratio (1.1-2.1) L 04/03/22 05:05 Specimen Type Clean catch urine 04/01/22 15:24 Urine Color Yellow (YELLOW) 04/01/22 15:24 Urine Appearance Clear (CLEAR) 04/01/22 15:24 Urine pH 6.0 (5.0 - 8.0) 04/01/22 15:24 Ur Specific [place] 1.020 (1.000-1.030) 04/01/22 15:24 Urine Protein 2+ (NEGATIVE) 04/01/22 15:24 Urine Glucose (UA) Negative (NEGATIVE) 04/01/22 15:24 Urine Ketones Negative (NEGATIVE) 04/01/22 15:24 Urine Blood 1+ (NEGATIVE) 04/01/22 15:24 Urine Nitrite Negative (NEGATIVE) 04/01/22 15:24 Urine Bilirubin Negative (NEGATIVE) 04/01/22 15:24 Urine Urobilinogen 2+ (NORMAL) 04/01/22 15:24 Ur Leukocyte Esterase 1+ (NEGATIVE) 04/01/22 15:24 Urine RBC 3-5 /HPF (0-3) A 04/01/22 15:24 Urine WBC 3-5 /HPF (0-5) 04/01/22 15:24 Ur Squamous Epith Cells Few /HPF (NEGATIVE) 04/01/22 15:24 Urine Bacteria Trace /HPF (NEGATIVE) 04/01/22 15:24 Urine Mucus Many /HPF (NEGATIVE) 04/01/22 15:24 Ur Culture Indicated? No/not indicated 04/01/22 15:24 SARS-CoV-2 (PCR) Negative (NEGATIVE) 04/02/22 13:40 Influenza Type A (PCR) Negative (NEGATIVE) 04/02/22 13:40 Influenza Type B (PCR) Negative (NEGATIVE) 04/02/22 13:40 RSV (PCR) Negative (NEGATIVE) 04/02/22 13:40 Assessment and Plan 1: subsiding acute sigmoid diverticulitis . to advance diet and same ABT , to follow as out Pt for future colonoscopy . Problem Patient Problems: Patient Problems (Updated 04/03/22 @ 11:36 by HENNY BLAND) Episode of syncope (Acute) R55 Dehydration (Acute) E86.0 UTI (urinary tract infection) (Acute) N39.0
[2022-04-03] MEDS: ZANAFLEX PO PRN (21:12)
--- NOTE | 2022-04-03 22:04 | RAD ---
HISTORYACUTE DIVERTICULITISSTUDYKUBCOMPARISONCT abdomen/pelvis from April 02, 2022TECHNIQUEAP supine projection, 1 imageFINDINGSGas and stool in non-distended colon.Gas in scattered loops of non-distended small bowel.No gross free air.No abnormal calcifications.No acute osseous abnormality.IMPRESSIONNonspecific bowel gas pattern. No specific acute abnormality identified.Electronically signed by: Skyler Gracia (Apr 03, 2022 22:03:13)
[2022-04-04] MEDS: FLAGYL IV PREMIX 500 MG BAG 500 MG/100 ML BAG IV SCH ×2 (03:02→09:13)
[2022-04-04 05:48] LABS: BASOPHILS % (AUTO) 0.9 % (0.2-1.0); EOSINOPHILS # (AUTO) 0.4 x10^3/uL (0.0-0.2); EOSINOPHILS % (AUTO) 9.2 % (0.9-2.9); HEMATOCRIT 31.6 % (36.0-47.0); HEMOGLOBIN 10.6 g/dL (12.0-16.0); LYMPHOCYTES # (AUTO) 1.6 X10^3/uL (1.3-2.9); LYMPHOCYTES % (AUTO) 32.5 % (21.0-51.0); MEAN CORPUSCULAR HGB CONC 33.6 g/dL (33.0-35.0); MEAN CORPUSCULAR VOLUME 86.5 fL (80.0-100.0); MEAN PLATELET VOLUME 8.7 fL (7.4-11.0); MONOCYTES # (AUTO) 0.7 x10^3/uL (0.3-0.8); MONOCYTES % (AUTO) 14.3 % (0.0-13.0); NEUTROPHILS # (AUTO) 2.1 x10^3/uL (2.2-4.8); NEUTROPHILS % (AUTO) 43.1 % (42.0-75.0); RED BLOOD COUNT 3.65 X10^6/uL (3.5-5.4); RED CELL DISTRIBUTION WIDTH 13.5 % (11.6-16.5); WHITE BLOOD COUNT 4.9 X10^3/uL (3.6-10.0)
[2022-04-04 06:00] LABS: ALANINE AMINOTRANSFERASE 11 Units/L (12-78); ALBUMIN 2.3 g/dL (3.4-5.0); ALKALINE PHOSPHATASE 67 Units/L (46-116); ASPARTATE AMINO TRANSFERASE 15 Units/L (15-37); BLOOD UREA NITROGEN 6 mg/dL (7-18); CALCIUM 8.3 mg/dL (8.5-10.1); CARBON DIOXIDE 25.4 mmol/L (21-32); CHLORIDE 105 mmol/L (98-107); COR CA(FOR HYPOALB) 9.7 mg/dL (8.5-10.1); COR NA(FOR HYPERGLY) 136 mmol/L (136-145); CREATININE 0.66 mg/dL (0.55-1.02); SODIUM 136 mmol/L (136-145); TOTAL PROTEIN 5.4 g/dL (6.4-8.2); eGFR NON BLACK RACES > 60 (>60)
[2022-04-04] MEDS: D5 1/2 NS 1,000 ML 1,000 ML IV SCH ×2 (07:33→09:15)
[2022-04-04 08:05] VITALS: BP 141/68
--- NOTE | 2022-04-04 08:19 | DR.PROGNOT ---
HOSPITAL PROGRESS NOTE Progress Note for Day of: Progress Note Date: 04/04/22 Chief Complaint Chief Complaint: Lt side abdominal pain is better today . no nausea or vomiting . normal WBC . afebrile . Past Medical Family Social History Past Med/Fam/Surg Hx: No changes since H&P Allergies: Allergies No Known Drug Allergies Allergy (Unknown, Verified 04/02/22 07:15) Onset Date: 10/12/2013 Review Of Systems ROS: No change since H&P Vital Signs Vital Signs: Temperature 97.8 F Pulse Rate [Left Radial] 59 Pulse Rate 95 Respiratory Rate 18 Blood Pressure [Right Arm] 131/60 Blood Pressure [Left Arm] 141/68 Blood Pressure 113/56 O2 Sat by Pulse Oximetry 95 Physical Exam Oriented: Normal Eyes: Normal Ear: Normal Nose: Normal Throat: Normal Cardiovascular: Normal : Normal GI:Auscultation: Normal GI:Palpation: Normal GI: Tenderness: LUQ and LLQ (soft , flat abdomen , no rebound . BS+) Skin: Normal Musculoskeletal: Normal Psychiatric: Normal Mood Description: Calm and Appropriate Affect: Normal Speech Pattern: Clear Laboratory and Diagnostics Result Diagrams: 04/04/22 05:06 04/04/22 05:06 Labs: 04/01/22 15:24 Urine,Clean Catch Urine Culture - Final Laboratory WBC 4.9 X10^3/uL (3.6-10.0) 04/04/22 05:06 RBC 3.65 X10^6/uL (3.5-5.4) 04/04/22 05:06 Hgb 10.6 g/dL (12.0-16.0) L 04/04/22 05:06 Hct 31.6 % (36.0-47.0) L 04/04/22 05:06 MCV 86.5 fL (80.0-100.0) 04/04/22 05:06 MCH 29.0 pg (27.0-34.0) 04/04/22 05:06 MCHC 33.6 g/dL (33.0-35.0) 04/04/22 05:06 RDW 13.5 % (11.6-16.5) 04/04/22 05:06 Plt Count 205 X10^3/uL (150.0-450.0) 04/04/22 05:06 MPV 8.7 fL (7.4-11.0) 04/04/22 05:06 Neut % (Auto) 43.1 % (42.0-75.0) 04/04/22 05:06 Lymph % (Auto) 32.5 % (21.0-51.0) 04/04/22 05:06 [place] % (Auto) 14.3 % (0.0-13.0) H 04/04/22 05:06 Eos % (Auto) 9.2 % (0.9-2.9) H 04/04/22 05:06 Baso % (Auto) 0.9 % (0.2-1.0) 04/04/22 05:06 Neut # (Auto) 2.1 x10^3/uL (2.2-4.8) L 04/04/22 05:06 Lymph # (Auto) 1.6 X10^3/uL (1.3-2.9) 04/04/22 05:06 [place] # (Auto) 0.7 x10^3/uL (0.3-0.8) 04/04/22 05:06 Eos # (Auto) 0.4 x10^3/uL (0.0-0.2) H 04/04/22 05:06 Baso # (Auto) 0.0 X10^3/uL (0.0-0.1) 04/04/22 05:06 Absolute Nucleated RBC 0.0 /100WBC 04/04/22 05:06 D-Dimer 0.92 ug/ml (0.0-0.57) H 04/01/22 20:26 Sodium 136 mmol/L (136-145) 04/04/22 05:06 Corrected Sodium 136 mmol/L (136-145) 04/04/22 05:06 Potassium 3.8 mmol/L (3.5-5.1) 04/04/22 05:06 Chloride 105 mmol/L (98-107) 04/04/22 05:06 Carbon Dioxide 25.4 mmol/L (21-32) 04/04/22 05:06 BUN 6 mg/dL (7-18) L 04/04/22 05:06 Creatinine 0.66 mg/dL (0.55-1.02) 04/04/22 05:06 Est GFR (MDRD) Af Amer > 60 (>60) 04/04/22 05:06 Est GFR (MDRD) Non-Af > 60 (>60) 04/04/22 05:06 Glucose 117 mg/dL (65-99) H 04/04/22 05:06 Calcium 8.3 mg/dL (8.5-10.1) L 04/04/22 05:06 Corrected Calcium 9.7 mg/dL (8.5-10.1) 04/04/22 05:06 Total Bilirubin 0.30 mg/dL (0.2-1.0) 04/04/22 05:06 AST 15 Units/L (15-37) 04/04/22 05:06 ALT 11 Units/L (12-78) L 04/04/22 05:06 Alkaline Phosphatase 67 Units/L (46-116) 04/04/22 05:06 Creatine Kinase 49 Units/L (26-192) 04/02/22 02:18 Troponin I High Sens 8.7 ng/L (4.0-60.0) 04/02/22 02:18 Total Protein 5.4 g/dL (6.4-8.2) L 04/04/22 05:06 Albumin 2.3 g/dL (3.4-5.0) L 04/04/22 05:06 Globulin 3.1 g/dL (2.5-4.5) 04/04/22 05:06 Albumin/Globulin Ratio 0.7 Ratio (1.1-2.1) L 04/04/22 05:06 Specimen Type Clean catch urine 04/01/22 15:24 Urine Color Yellow (YELLOW) 04/01/22 15:24 Urine Appearance Clear (CLEAR) 04/01/22 15:24 Urine pH 6.0 (5.0 - 8.0) 04/01/22 15:24 Ur Specific [place] 1.020 (1.000-1.030) 04/01/22 15:24 Urine Protein 2+ (NEGATIVE) 04/01/22 15:24 Urine Glucose (UA) Negative (NEGATIVE) 04/01/22 15:24 Urine Ketones Negative (NEGATIVE) 04/01/22 15:24 Urine Blood 1+ (NEGATIVE) 04/01/22 15:24 Urine Nitrite Negative (NEGATIVE) 02/13/23 15:24 Urine Bilirubin Negative (NEGATIVE) 04/01/22 15:24 Urine Urobilinogen 2+ (NORMAL) 04/01/22 15:24 Ur Leukocyte Esterase 1+ (NEGATIVE) 04/01/22 15:24 Urine RBC 3-5 /HPF (0-3) A 04/01/22 15:24 Urine WBC 3-5 /HPF (0-5) 04/01/22 15:24 Ur Squamous Epith Cells Few /HPF (NEGATIVE) 04/01/22 15:24 Urine Bacteria Trace /HPF (NEGATIVE) 04/01/22 15:24 Urine Mucus Many /HPF (NEGATIVE) 04/01/22 15:24 Ur Culture Indicated? No/not indicated 04/01/22 15:24 SARS-CoV-2 (PCR) Negative (NEGATIVE) 04/02/22 13:40 Influenza Type A (PCR) Negative (NEGATIVE) 04/02/22 13:40 Influenza Type B (PCR) Negative (NEGATIVE) 04/02/22 13:40 RSV (PCR) Negative (NEGATIVE) 04/02/22 13:40 Assessment and Plan 1: subsiding acute sigmoid diverticulitis . to advance diet and same ABT , to follow as out Pt for future colonoscopy . Problem Patient Problems: Patient Problems (Updated 04/03/22 @ 11:36 by HENNY BLAND) Episode of syncope (Acute) R55 Dehydration (Acute) E86.0 UTI (urinary tract infection) (Acute) N39.0
[2022-04-04] MEDS: PROTONIX INJ 40 MG VIAL IVP SCH (09:12)
[2022-04-04] MEDS: K-DUR TAB 20 MEQ PO PRN (09:12)
[2022-04-04] MEDS: LOVENOX INJ 40 MG SYR SC SCH (09:15)
[2022-04-04] MEDS: CIPRO IV 400 MG PREMIX* 400 MG/200 ML IV.SOLN. IV SCH (10:44)
--- NOTE | 2022-04-08 16:19 | PCM.PROG ---
Progress Note Progress Note for Day of Date of Exam: 04/03/22 Subjective Subjective: Pt is a 76 year old female admitted for syncope and acute diverticulitis. This morning patient reports some improvement in abdominal pain. All other symptoms have resolved. Labs/imaging: Wbc 10.3, Hgb 11.6, Plt 219, Na 138, K 3.7, Creatinine 0.76, Glucose 107, D-dimer 0.92, cardiac enzymes negative x3, CT brain:no acute intracranial abnormalities, CXR: no acute cardiopulmonary findings, UA: positive for trace blood, 1+ leuks, and trace bacteria, Will order urine culture. Pt was started on IVF NS@75ml/h, and will start on antibiotics IV Rocephin while awaiting culture results. Will get CTA chest due to syncopal episode and elevated D-dimer. Order CT abdomen and pelvis for left lower q uadrant pain. Restart home medications. Continue to closely monitor and follow up labs/imaging. Past Medical Family Social History Past Med/Fam/Surg Hx: No changes since H&P Allergies: Allergies No Known Drug Allergies Allergy (Unknown, Verified 04/02/22 07:15) Onset Date: 10/12/2013 Review of Systems ROS: No change since H&P Vital Signs and I&O's Vital Signs: Temperature 97.8 F Pulse Rate [Left Radial] 59 Pulse Rate 95 Respiratory Rate 18 Blood Pressure [Right Arm] 131/60 Blood Pressure [Left Arm] 141/68 Blood Pressure 113/56 O2 Sat by Pulse Oximetry 95 Intake and Output: Intake & Output 04/01/22 04/02/22 04/03/22 04/04/22 23:59 23:59 23:59 23:59 Intake Total 580 / 580 3108 / 3108 2560 / 2560 1840 / 1840 Balance 580 / 580 3108 / 3108 2560 / 2560 1840 / 1840 Physical Exam Oriented: Normal Eyes: Normal Ear: Normal Nose: Normal Throat: Normal Cardiovascular: Normal : Normal Auscultation: Bowel Sounds: Normal Tenderness: LUQ and LLQ (soft , flat abdomen , no rebound . BS+) Skin: Normal Musculoskeletal: Normal Psychiatric: Normal Mood Description: Calm and Appropriate Affect: Normal Speech Pattern: Clear Laboratory and Diagnostics Result Diagrams: 04/04/22 05:06 04/04/22 05:06 Labs: 04/01/22 15:24 Urine,Clean Catch Urine Culture - Final Laboratory WBC 4.9 X10^3/uL (3.6-10.0) 04/04/22 05:06 RBC 3.65 X10^6/uL (3.5-5.4) 04/04/22 05:06 Hgb 10.6 g/dL (12.0-16.0) L 04/04/22 05:06 Hct 31.6 % (36.0-47.0) L 04/04/22 05:06 MCV 86.5 fL (80.0-100.0) 04/04/22 05:06 MCH 29.0 pg (27.0-34.0) 04/04/22 05:06 MCHC 33.6 g/dL (33.0-35.0) 04/04/22 05:06 RDW 13.5 % (11.6-16.5) 04/04/22 05:06 Plt Count 205 X10^3/uL (150.0-450.0) 04/04/22 05:06 MPV 8.7 fL (7.4-11.0) 04/04/22 05:06 Neut % (Auto) 43.1 % (42.0-75.0) 04/04/22 05:06 Lymph % (Auto) 32.5 % (21.0-51.0) 04/04/22 05:06 [place] % (Auto) 14.3 % (0.0-13.0) H 04/04/22 05:06 Eos % (Auto) 9.2 % (0.9-2.9) H 04/04/22 05:06 Baso % (Auto) 0.9 % (0.2-1.0) 04/04/22 05:06 Neut # (Auto) 2.1 x10^3/uL (2.2-4.8) L 04/04/22 05:06 Lymph # (Auto) 1.6 X10^3/uL (1.3-2.9) 04/04/22 05:06 [place] # (Auto) 0.7 x10^3/uL (0.3-0.8) 04/04/22 05:06 Eos # (Auto) 0.4 x10^3/uL (0.0-0.2) H 04/04/22 05:06 Baso # (Auto) 0.0 X10^3/uL (0.0-0.1) 04/04/22 05:06 Absolute Nucleated RBC 0.0 /100WBC 04/04/22 05:06 D-Dimer 0.92 ug/ml (0.0-0.57) H 04/01/22 20:26 Sodium 136 mmol/L (136-145) 04/04/22 05:06 Corrected Sodium 136 mmol/L (136-145) 04/04/22 05:06 Potassium 3.8 mmol/L (3.5-5.1) 04/04/22 05:06 Chloride 105 mmol/L (98-107) 04/04/22 05:06 Carbon Dioxide 25.4 mmol/L (21-32) 04/04/22 05:06 BUN 6 mg/dL (7-18) L 04/04/22 05:06 Creatinine 0.66 mg/dL (0.55-1.02) 04/04/22 05:06 Est GFR (MDRD) Af Amer > 60 (>60) 04/04/22 05:06 Est GFR (MDRD) Non-Af > 60 (>60) 04/04/22 05:06 Glucose 117 mg/dL (65-99) H 04/04/22 05:06 Calcium 8.3 mg/dL (8.5-10.1) L 04/04/22 05:06 Corrected Calcium 9.7 mg/dL (8.5-10.1) 04/04/22 05:06 Total Bilirubin 0.30 mg/dL (0.2-1.0) 04/04/22 05:06 AST 15 Units/L (15-37) 04/04/22 05:06 ALT 11 Units/L (12-78) L 04/04/22 05:06 Alkaline Phosphatase 67 Units/L (46-116) 04/04/22 05:06 Creatine Kinase 49 Units/L (26-192) 04/02/22 02:18 Troponin I High Sens 8.7 ng/L (4.0-60.0) 04/02/22 02:18 Total Protein 5.4 g/dL (6.4-8.2) L 04/04/22 05:06 Albumin 2.3 g/dL (3.4-5.0) L 04/04/22 05:06 Globulin 3.1 g/dL (2.5-4.5) 04/04/22 05:06 Albumin/Globulin Ratio 0.7 Ratio (1.1-2.1) L 04/04/22 05:06 Specimen Type Clean catch urine 04/01/22 15:24 Urine Color Yellow (YELLOW) 04/01/22 15:24 Urine Appearance Clear (CLEAR) 04/01/22 15:24 Urine pH 6.0 (5.0 - 8.0) 04/01/22 15:24 Ur Specific [place] 1.020 (1.000-1.030) 04/01/22 15:24 Urine Protein 2+ (NEGATIVE) 04/01/22 15:24 Urine Glucose (UA) Negative (NEGATIVE) 04/01/22 15:24 Urine Ketones Negative (NEGATIVE) 04/01/22 15:24 Urine Blood 1+ (NEGATIVE) 04/01/22 15:24 Urine Nitrite Negative (NEGATIVE) 04/01/22 15:24 Urine Bilirubin Negative (NEGATIVE) 04/01/22 15:24 Urine Urobilinogen 2+ (NORMAL) 04/01/22 15:24 Ur Leukocyte Esterase 1+ (NEGATIVE) 04/01/22 15:24 Urine RBC 3-5 /HPF (0-3) A 04/01/22 15:24 Urine WBC 3-5 /HPF (0-5) 04/01/22 15:24 Ur Squamous Epith Cells Few /HPF (NEGATIVE) 04/01/22 15:24 Urine Bacteria Trace /HPF (NEGATIVE) 04/01/22 15:24 Urine Mucus Many /HPF (NEGATIVE) 04/01/22 15:24 Ur Culture Indicated? No/not indicated 04/01/22 15:24 SARS-CoV-2 (PCR) Negative (NEGATIVE) 04/02/22 13:40 Influenza Type A (PCR) Negative (NEGATIVE) 04/02/22 13:40 Influenza Type B (PCR) Negative (NEGATIVE) 04/02/22 13:40 RSV (PCR) Negative (NEGATIVE) 04/02/22 13:40 Plan (1) Syncopal episodes: Status: Acute (2) Acute UTI: Status: Acute (3) Abdominal pain: Status: Acute
--- NOTE | 2022-04-08 16:27 | W.DIS.FURT ---
Summary of Discharge Discharge Summary of Date Date of Exam: 04/04/22 Admission Date Date of Admission: 04/01/22 Admission Diagnosis Patient Problems (Updated 04/05/22 @ 09:07 by Emilie Guevara) Episode of syncope (Acute) R55 Dehydration (Acute) E86.0 UTI (urinary tract infection) (Acute) N39.0 Hospital Course: Pt is a 76 year old female admitted for acute sigmoid diverticulitis. Her hospital/treatment course included: IVF NS@75ml/h, and antibiotics IV cipro and IV flagyl. Her diet was gradually advanced as tolerated and abdominal pain subsided. General surgery-Dr Chilel was consulted. Labs/imaging: Wbc 4.9, Hgb 10.6, Plt 205, Na 136, K 3.8, Creatinine 0.66, Glucose 117. Repeat KUB negative for acute findings. Pt responded well to treatments. She was discharged in stable condition. Rx cipro and flagyl to complete course. Instructed to follow up with pcp in 1 week and general surgery for plan for future colonoscopy. Labs: Laboratory Last Values WBC 4.9 X10^3/uL (3.6-10.0) 04/04/22 05:06 RBC 3.65 X10^6/uL (3.5-5.4) 04/04/22 05:06 Hgb 10.6 g/dL (12.0-16.0) L 04/04/22 05:06 Hct 31.6 % (36.0-47.0) L 04/04/22 05:06 MCV 86.5 fL (80.0-100.0) 04/04/22 05:06 MCH 29.0 pg (27.0-34.0) 04/04/22 05:06 MCHC 33.6 g/dL (33.0-35.0) 04/04/22 05:06 RDW 13.5 % (11.6-16.5) 04/04/22 05:06 Plt Count 205 X10^3/uL (150.0-450.0) 04/04/22 05:06 MPV 8.7 fL (7.4-11.0) 04/04/22 05:06 Neut % (Auto) 43.1 % (42.0-75.0) 04/04/22 05:06 Lymph % (Auto) 32.5 % (21.0-51.0) 04/04/22 05:06 Cotton % (Auto) 14.3 % (0.0-13.0) H 04/04/22 05:06 Eos % (Auto) 9.2 % (0.9-2.9) H 04/04/22 05:06 Baso % (Auto) 0.9 % (0.2-1.0) 04/04/22 05:06 Neut # (Auto) 2.1 x10^3/uL (2.2-4.8) L 04/04/22 05:06 Lymph # (Auto) 1.6 X10^3/uL (1.3-2.9) 04/04/22 05:06 Cotton # (Auto) 0.7 x10^3/uL (0.3-0.8) 04/04/22 05:06 Eos # (Auto) 0.4 x10^3/uL (0.0-0.2) H 04/04/22 05:06 Baso # (Auto) 0.0 X10^3/uL (0.0-0.1) 04/04/22 05:06 Absolute Nucleated RBC 0.0 /100WBC 04/04/22 05:06 D-Dimer 0.92 ug/ml (0.0-0.57) H 04/01/22 20:26 Sodium 136 mmol/L (136-145) 04/04/22 05:06 Corrected Sodium 136 mmol/L (136-145) 04/04/22 05:06 Potassium 3.8 mmol/L (3.5-5.1) 04/04/22 05:06 Chloride 105 mmol/L (98-107) 04/04/22 05:06 Carbon Dioxide 25.4 mmol/L (21-32) 04/04/22 05:06 BUN 6 mg/dL (7-18) L 04/04/22 05:06 Creatinine 0.66 mg/dL (0.55-1.02) 04/04/22 05:06 Est GFR (MDRD) Af Amer > 60 (>60) 04/04/22 05:06 Est GFR (MDRD) Non-Af > 60 (>60) 04/04/22 05:06 Glucose 117 mg/dL (65-99) H 04/04/22 05:06 Calcium 8.3 mg/dL (8.5-10.1) L 04/04/22 05:06 Corrected Calcium 9.7 mg/dL (8.5-10.1) 04/04/22 05:06 Total Bilirubin 0.30 mg/dL (0.2-1.0) 04/04/22 05:06 AST 15 Units/L (15-37) 04/04/22 05:06 ALT 11 Units/L (12-78) L 04/04/22 05:06 Alkaline Phosphatase 67 Units/L (46-116) 04/04/22 05:06 Creatine Kinase 49 Units/L (26-192) 04/02/22 02:18 Troponin I High Sens 8.7 ng/L (4.0-60.0) 04/02/22 02:18 Total Protein 5.4 g/dL (6.4-8.2) L 04/04/22 05:06 Albumin 2.3 g/dL (3.4-5.0) L 04/04/22 05:06 Globulin 3.1 g/dL (2.5-4.5) 04/04/22 05:06 Albumin/Globulin Ratio 0.7 Ratio (1.1-2.1) L 04/04/22 05:06 Carcinoembryonic Ag 2.7 ng/mL 04/02/22 16:44 Specimen Type Clean catch urine 04/01/22 15:24 Urine Color Yellow (YELLOW) 04/01/22 15:24 Urine Appearance Clear (CLEAR) 04/01/22 15:24 Urine pH 6.0 (5.0 - 8.0) 04/01/22 15:24 Ur Specific [place] 1.020 (1.000-1.030) 04/01/22 15:24 Urine Protein 2+ (NEGATIVE) 04/01/22 15:24 Urine Glucose (UA) Negative (NEGATIVE) 04/01/22 15:24 Urine Ketones Negative (NEGATIVE) 04/01/22 15:24 Urine Blood 1+ (NEGATIVE) 04/01/22 15:24 Urine Nitrite Negative (NEGATIVE) 04/01/22 15:24 Urine Bilirubin Negative (NEGATIVE) 04/01/22 15:24 Urine Urobilinogen 2+ (NORMAL) 04/01/22 15:24 Ur Leukocyte Esterase 1+ (NEGATIVE) 04/01/22 15:24 Urine RBC 3-5 /HPF (0-3) A 04/01/22 15:24 Urine WBC 3-5 /HPF (0-5) 04/01/22 15:24 Ur Squamous Epith Cells Few /HPF (NEGATIVE) 04/01/22 15:24 Urine Bacteria Trace /HPF (NEGATIVE) 04/01/22 15:24 Urine Mucus Many /HPF (NEGATIVE) 04/01/22 15:24 Ur Culture Indicated? No/not indicated 04/01/22 15:24 SARS-CoV-2 (PCR) Negative (NEGATIVE) 04/02/22 13:40 Influenza Type A (PCR) Negative (NEGATIVE) 04/02/22 13:40 Influenza Type B (PCR) Negative (NEGATIVE) 04/02/22 13:40 RSV (PCR) Negative (NEGATIVE) 04/02/22 13:40 Reason For Visit: DIVERTICULITIS, SYNCOPAL EPISODR, DEHYDRATION, UTI Discharge Diagnosis All Active Problems (Updated 04/05/22 @ 09:07 by Emilie Guevara) Episode of syncope (Acute) Dehydration (Acute) UTI (urinary tract infection) (Acute) Abdominal pain (Acute) Acute UTI (Acute) Syncopal episodes (Acute) Hypertension (Acute) GERD (gastroesophageal reflux disease) (Acute) Leukocytosis (Acute) Right foot injury (Acute) Pneumonia (Acute) Plan of Treatment: Continue with present treatment and follow up plan. Pt is to keep follow up appointment as instructed and take medications as ordered. Discharge Medications Discharge Medications: No Known Drug Allergies Allergy (Unknown, Verified 04/02/22 07:15) CONTINUE taking the following medications escitalopram oxalate 20 mg tablet 20 mg PO QDAY 04/01/22 [History] levothyroxine 88 mcg tablet 88 mcg PO QDAY 04/01/22 [History] losartan 100 mg tablet 100 mg PO BID 04/01/22 [History] omeprazole 40 mg capsule,delayed release 40 mg PO QDAY 04/01/22 [History] rosuvastatin 20 mg tablet 20 mg PO HS 04/01/22 [History] tizanidine 4 mg tablet 4 mg PO HS 04/01/22 [History] tizanidine 4 mg tablet 2 mg PO BID 04/02/22 [History] Discharge Disposition Discharge Disposition: Home Discharge Condition: Stable, Discharge Plan Discharge Plan Hospital Course: Pt is a 76 year old female admitted for acute sigmoid diverticulitis. Her hospital/treatment course included: IVF NS@75ml/h, and antibiotics IV cipro and IV flagyl. Her diet was gradually advanced as tolerated and abdominal pain subsided. General surgery-Dr Chilel was consulted. Labs/imaging: Wbc 4.9, Hgb 10.6, Plt 205, Na 136, K 3.8, Creatinine 0.66, Glucose 117. Repeat KUB negative for acute findings. Pt responded well to treatments. She was discharged in stable condition. Rx cipro and flagyl to complete course. Instructed to follow up with pcp in 1 week and general surgery for plan for future colonoscopy. Patient Disposition: 01 HOME, SELF-CARE Condition: Stable Health Concerns: Post Hospitalization: new medications and changes needed to prevent readmission or further decline. Pt educated and given instructions on all concerns. Care Plan Goals: Problem: Pain/Alteration in Comfort Goal: Improve/ Resolve Pain; Achieve Pain Tolerance Instructions: Take pain medications as prescribed. Contact your primary care provider if your pain is unrelieved or worsens. Follow up with primary care provider as directed. Plan of Treatment: Continue with present treatment and follow up plan. Pt is to keep follow up appointment as instructed and take medications as ordered. Prescriptions: No Action cetirizine [Zyrtec] 10 mg tablet 10 mg PO QDAY MDD 1 Qty: 30 0RF lorazepam 0.5 mg tablet 0.5 mg PO BID MDD 2 PRN (Reason: anxiety) 30 Days Qty: 30 0RF tizanidine 4 mg tablet 4 mg PO HS omeprazole 40 mg capsule,delayed release(DR/EC) 40 mg PO QDAY levothyroxine 88 mcg tablet 88 mcg PO QDAY losartan 100 mg tablet 100 mg PO BID escitalopram oxalate 20 mg tablet 20 mg PO QDAY rosuvastatin 20 mg tablet 20 mg PO HS tizanidine 4 mg tablet 2 mg PO BID Rx Instructions: TAKE 1/2 TABLET TWICE A DAY AND 1 TABLET AT BEDTIME Follow ups/Referrals Follow ups/Referrals: GOLDIE BOOKER [Primary Care Provider] - 04/11/22 10:30 am Instructions Instructions: Urinary Tract Infection, Adult, [id number], Near-Syncope, [id number], Diverticulosis, Syncope, [id number] Stand Alone Forms: Excuse From Work or School
== END 2022-04-04 12:10 | disposition home or self-care (01) | DRG 392 ==
LOC: MED/SURG 13:46 → ER 13:46 → OBSVTOIN 18:02 → MED/SURG 18:54
PROVIDERS: ADMIT Family Medicine; ATTEND Family Medicine
DX: N39.0 Urinary tract infection, site not specified; Z85.3 Personal history of malignant neoplasm of breast; R73.09 Other abnormal glucose; E86.0 Dehydration; R79.1 Abnormal coagulation profile; R10.32 Left lower quadrant pain; K57.32 Diverticulitis of large intestine without perforation or abscess without bleeding; R55 Syncope and collapse; Z20.822 Contact with and (suspected) exposure to COVID-19; K21.9 Gastro-esophageal reflux disease without esophagitis; I10 Essential (primary) hypertension

== ENCOUNTER 2022-08-16 10:01 | Observation (INO) ==
[2022-08-16 10:59] VITALS: BMI 24.5
[2022-08-16] MEDS: NS 1,000 ML IV 1,000 ML IV SCH ×2 (10:59→20:13)
[2022-08-16] MEDS ORDERED: ULTRAM PO PRN (17:42)
[2022-08-16 20:42] LABS: BILIRUBIN,URINE NEGATIVE (NEGATIVE); BLOOD/HEMOGLOBIN,URINE NEGATIVE (NEGATIVE); GLUCOSE, URINE NEGATIVE (NEGATIVE); KETONES,URINE NEGATIVE (NEGATIVE); LEUKOCYTE ESTERASE ,URINE 1+ (NEGATIVE); NITRITES,URINE NEGATIVE (NEGATIVE); PH,URINE 6.5 (5.0 - 8.0); PROTEIN,URINE NEGATIVE (NEGATIVE); UROBILINOGEN,URINE NORMAL (NORMAL)
[2022-08-16 20:49] LABS: APPEARANCE,URINE CLEAR (CLEAR); BACTERIA,URINE NEGATIVE /HPF (NEGATIVE); COLOR,URINE PALE YELLOW (YELLOW); RBC,URINE NONE SEEN /HPF (0-3); SQUAMOUS EPITHELIAL CELL,UR RARE /HPF (NEGATIVE)
[2022-08-16] MEDS ORDERED: LEXAPRO ONE (21:55)
[2022-08-16] MEDS: ZANAFLEX PO SCH (21:57)
[2022-08-16] MEDS: LEXAPRO PO SCH (21:57)
[2022-08-16] MEDS ORDERED: LEXAPRO PO SCH (22:00)
--- NOTE | 2022-08-16 23:19 | DR.H&P ---
H&P - History & Physical for Day of: H&P Date: 08/16/22 - Chief Complaint Chief Complaint: WEAKNESS, FATIGUE, LOW BACK PAIN, LOW SODIUM - History of Present Illness History of Present Illness: IS A 77 YEAR OLD WHITE FEMALE. SHE IS NEW TO OUR PRACTICE. SHE PRESENTED TODAY WITH COMPLAINTS OF GENERALIZED WEAKNESS, FATIGUE, AND SEVERE LOW BACK PAIN. SHE REPORTS THAT HER SYMPTOMS STARTED ABOUT A WEEK AGO. SHE DESCRIBES BACK PAIN CONSTANT. SHE RATES PAIN A 7/10. SHE HAS A PMH OF HTN, ARTHRITIS, HYPERTHYROIDISM, DYSLIPIDEMIA, DEPRESSION, BREAST CANCER, HYSTERECTOMY, LEFT FOOT SURGERY. LABS WERE OBTAINED IN THE OFFICE ON 08/13/22. T SH 0.89, DHEA 4.2, A1C 6.2, SODIUM 128, CHLORIDE 95, CARBON DIXOIDE 19, CHOLESTEROL 218, TRIGLYCERIDES 197, LDL 123. ALL OTHER LAB VALUES WERE WITHIN NORMAL LIMITS. DECISION WAS MADE TO ADMIT PATIENT TO THE HOSPITAL OBSERVATION STATUS FOR FURTHER EVALUATION AND TREATMENT OF HYPONATREMIA, GENERALIZED WEAKNESS, AND SEVERE LOW BACK PAIN. ON ARRIVAL TO THE HOSPITAL, VITALS WERE: 97.9-66-18-97%-138/66. CMP WAS REPEATED TODAY. SODIUM 129, POTASSIUM 5.0, CHLORIDE 94, CARBON DIOXIDE 28.4, BUN 14, CREATININE 0.94, GLUCOSE 92, CALCIUM 9.3, AST 15, ALT 17, ALK PHOS 78, TOTAL PROTEIN 7.1, ALBUMIN 3.6, TSH 0.133. URINALYSIS WAS OBTAINED AND REVEALED: WBC 0-2, RBC NONE SEEN, LEUKOCYTES 1+, BACTERIA NEGATIVE. A URINE CULTURE WAS SET UP. SHE WAS STARTED ON NORMAL SALINE AT 100 ML/HR. HER HOME MEDICATIONS OF LIPITOR, LEXAPRO, PRILOSEC, CRESTOR, ZANAFLEX, AND ULTRAM. WE HELD HER HYZAAR AND INSTEAD STARTED LOSARTAN 50MG DAILY. WE PLAN TO OBTAIN A BRAIN CT WITHOUT CONTRAST AND A LUMBAR SPINE CT. OTHERWISE, WE WILL FOLLOW-UP WITH AM LABS AND CONTINUE TO MONITOR. TIME SPENT ON CLINICAL ASSESSMENT, REVIEWING LABS AND IMAGING, DECISION MAKING, AND DOCUMENTATION GREATER THAN 75 MINUTES. - Past Medical History Past Medical History: Arthritis, Depression, Dyslipidemia, Hypertension, Hyperthyroidism Additional Medical History: HX OF BREAST CANCER - Past Surgical History Surgical History: Hysterectomy, Ortho Surgery - Family History Family Medical History: Coronary Artery Disease, Hypertension - Social History Does patient currently use any type of tobacco product: No Have you used tobacco products in the last 12 months: No Type of Tobacco Use: Cigarettes Does any household member use tobacco: No Alcohol Use: None Drug Use: None - Review of Systems Constitutional: Weakness Eyes: No Symptoms Reported ENT: No Symptoms Reported Respiratory: No Symptoms Reported Cardiovascular: No Symptoms Reported Gastrointestinal: No Symptoms Reported Genitourinary: No Symptoms Reported Musculoskeletal: Back Pain Skin: No Symptoms Reported Neurological: Weakness - Physical Exam Vital Signs: Vital Signs Temperature 99.0 F Temperature 98.0 F Pulse Rate [Left Radial] 58 Pulse Rate [Left Radial] 67 Respiratory Rate 18 Respiratory Rate 20 Respiratory Rate 20 Respiratory Rate 20 Blood Pressure [Left Arm] 161/74 Blood Pressure [Left Arm] 141/65 O2 Sat by Pulse Oximetry 97 O2 Sat by Pulse Oximetry 94 Oriented: Normal Eyes: Normal Ear: Normal Nose: Normal Throat: Normal Respiratory: Clear Throughout Cardiovascular: Normal : Normal Auscultation: Bowel Sounds: Normal Palpation: Normal Tenderness: Normal Skin: Normal Musculoskeletal: Normal Psychiatric: Normal Mood Description: Calm Affect: Normal - Assessment/Plan (1) Hyponatremia Status: Acute Plan: ADMIT, NORMAL SALINE AT 100 ML/HR. HER HOME MEDICATIONS OF LIPITOR, LEXAPRO, PRILOSEC, CRESTOR, ZANAFLEX, AND ULTRAM. WE HELD HER HYZAAR AND INSTEAD STARTED LOSARTAN 50MG DAILY. (2) Generalized weakness Status: Acute Plan: OBTAIN BRAIN CT WITHOUT CONTRAST (3) Low back pain Qualifiers: Chronicity: acute Back pain laterality: unspecified Sciatica presence: without sciatica Qualified Code(s): M54.50 - Low back pain, unspecified Status: Acute Plan: OBTAIN LUMBAR SPINE CT (4) Hyperlipidemia Qualifiers: Hyperlipidemia type: mixed hyperlipidemia Qualified Code(s): E78.2 - Mixed hyperlipidemia Status: Chronic Plan: CONTINUE CRESTOR (5) Major depressive disorder Qualifiers: Major depression recurrence: recurrent Major depression episode severity: mild Status: Chronic Plan: STABLE. CONTINUE LEXAPRO (6) Hypertension Qualifiers: Hypertension type: primary hypertension Qualified Code(s): I10 - Essential (primary) hypertension Status: Chronic Plan: STABLE. CONTINUE LOSARTAN (7) GERD (gastroesophageal reflux disease) Qualifiers: Esophagitis presence: esophagitis presence not specified Qualified Code(s): K21.9 - Gastro-esophageal reflux disease without esophagitis Status: Chronic Plan: STABLE. CONTINUE PRILOSEC - Allergies Allergies/Adverse Reactions: Allergies Allergy/AdvReac Type Severity Reaction Status Date / Time No Known Drug Allergies Allergy Unknown Verified 04/02/22 07:15 - Medications Home Medications: Home Medications Medication Instructions Recorded Confirmed escitalopram oxalate 20 mg tablet 10 mg PO HS 04/01/22 08/16/22 omeprazole 40 mg capsule,delayed 40 mg PO QDAY 04/01/22 08/16/22 release rosuvastatin 20 mg tablet 20 mg PO HS 04/01/22 08/16/22 tizanidine 4 mg tablet 4 mg PO HS 04/01/22 08/16/22 atorvastatin 10 mg tablet 10 mg PO QDAY 08/16/22 08/16/22 clobetasol 0.05 % scalp solution 1 applic topical BID 08/16/22 08/16/22 losartan 50 mg-hydrochlorothiazide 1 tab PO QDAY 08/16/22 08/16/22 12.5 mg tablet
[2022-08-17] MEDS: NS 1,000 ML IV 1,000 ML IV SCH ×3 (02:52→20:29)
[2022-08-17 05:18] LABS: BASOPHILS % (AUTO) 0.7 % (0.2-1.0); EOSINOPHILS # (AUTO) 0.4 x10^3/uL (0.0-0.2); EOSINOPHILS % (AUTO) 5.4 % (0.9-2.9); HEMATOCRIT 34.4 % (36.0-47.0); HEMOGLOBIN 11.7 g/dL (12.0-16.0); LYMPHOCYTES # (AUTO) 1.9 X10^3/uL (1.3-2.9); LYMPHOCYTES % (AUTO) 28.7 % (21.0-51.0); MEAN CORPUSCULAR HEMOGLOBIN 29.5 pg (27.0-34.0); MEAN CORPUSCULAR VOLUME 86.8 fL (80.0-100.0); MEAN PLATELET VOLUME 7.8 fL (7.4-11.0); MONOCYTES # (AUTO) 0.9 x10^3/uL (0.3-0.8); MONOCYTES % (AUTO) 12.8 % (0.0-13.0); NEUTROPHILS # (AUTO) 3.5 x10^3/uL (2.2-4.8); NEUTROPHILS % (AUTO) 52.4 % (42.0-75.0); PLATELET COUNT 254 X10^3/uL (150.0-450.0); RED BLOOD COUNT 3.96 X10^6/uL (3.5-5.4); RED CELL DISTRIBUTION WIDTH 13.9 % (11.6-16.5); WHITE BLOOD COUNT 6.7 X10^3/uL (3.6-10.0)
[2022-08-17 05:28] LABS: ALANINE AMINOTRANSFERASE 15 Units/L (12-78); ALKALINE PHOSPHATASE 67 Units/L (46-116); ASPARTATE AMINO TRANSFERASE 14 Units/L (15-37); BLOOD UREA NITROGEN 13 mg/dL (7-18); CALCIUM 8.4 mg/dL (8.5-10.1); CARBON DIOXIDE 27.1 mmol/L (21-32); CHLORIDE 100 mmol/L (98-107); COR CA(FOR HYPOALB) 9.2 mg/dL (8.5-10.1); CREATININE 0.73 mg/dL (0.55-1.02); GLUCOSE 91 mg/dL (65-99); POTASSIUM 4.7 mmol/L (3.5-5.1); SODIUM 133 mmol/L (136-145); TOTAL PROTEIN 6.1 g/dL (6.4-8.2); eGFR NON BLACK RACES > 60 (>60)
--- NOTE | 2022-08-17 07:02 | CT ---
HISTORYweakness, amsSTUDYBRAIN W/O [id number] axial CT images of the head without contrast. Dose reduction techniques including Automated Exposure Control (AEC) and adjustment of mA and kV were utilized.FINDINGSNo visible intracranial hemorrhage or overt acute infarct. Patchy white matter disease nonspecific but compatible with small vessel ischemic change. No ventriculomegaly or midline shift. Basal cisterns appear patent. Globes intact. Included paranasal sinuses and mastoid air cells appear aerated. Skull base and calvarium appear intact.IMPRESSIONNo acute intracranial finding.Electronically signed by: Kevin Sanchez (Aug 17, 2022 07:00:40)
[2022-08-17] MEDS ORDERED: HYZAAR 50/12.5 MG PO SCH (09:00)
[2022-08-17] MEDS: LIPITOR TAB 10 MG PO SCH (10:04)
[2022-08-17] MEDS: CRESTOR TAB 10 MG PO SCH (10:04)
[2022-08-17] MEDS: MAG-OX TAB PO SCH (10:04)
[2022-08-17] MEDS: PriLOSEC PO SCH (10:04)
[2022-08-17] MEDS ORDERED: LEXAPRO ONE (19:51)
[2022-08-17] MEDS: LEXAPRO PO SCH (20:28)
[2022-08-17] MEDS: ZANAFLEX PO SCH (20:28)
--- NOTE | 2022-08-17 21:25 | PCM.PROG ---
Progress Note - Progress Note for Day of Date of Exam: 08/17/22 - Subjective Subjective: IS CURRENTLY OBSERVATION STATUS FOR TREATMENT OF ACUTE HYPONATREMIA, GENERALIZED WEAKNESS, AND LOW BACK PAIN. SHE HAS A PMH OF HYPERLIPIDEMIA, MAJOR DEPRESSIVE DISORDER, HTN, GERD, AND HYPERTHYROIDISM. TODAY, SHE IS ALERT AND ORIENTED, SITTING ON THE SIDE OF THE BED ON MORNING ROUNDS. SHE CONTINUES TO COMPLAIN OF GENERALIZED WEAKNESS, FATIGUE, AND LOW BACK PAIN THIS MORNING. SHE DOES ADMIT TO SLIGHT IMPROVEMENT IN WEAKNESS SINCE ADMISSION. ON EXAMINATION, HEART IS REGULAR IN RATE AND RHYTHM. BILATERAL LUNGS ARE CLEAR TO AUSCULTATION. ABDOMEN IS ROUND, SOFT, AND NON-TENDER WITH NORMAL BOWEL SOUNDS NOTED IN ALL QUADRANTS. TENDERNESS NOTED TO LUMBAR SPINE ON PALPATION. GOOD RANGE OF MOTION NOTED TO BILATERAL LOWER EXTREMITIES. NO EDEMA NOTED. HER VITALS THIS MORNING ARE: 98.4-62-18-93%-128/69. LABS WERE OBTAINED. WBC 6.7, RBC 3.96, HGB 11.7, HCT 34.4, PLT COUNT 254, SODIUM 133, POTASSIUM 4.7, CHLORIDE 100, BUN 13, CREATININE 0.73, GLUCOSE 91, CALCIUM 8.4, MAGNESIUM 1.9, A ST 14, ALT 15, ALK PHOS 67, TOTAL PROTEIN 6.1, ALBUMIN 3.0. URINE CULTURE IS PENDING. SHE IS CURRENTLY RECEIVING NORMAL SALINE AT 100 ML/HR. BRAIN CT WAS OBTAINED YESTERDAY AND WAS NEGATIVE FOR ACUTE ABNORMALITY. WE ALSO OBTAINED A LUMBAR SPINE CT. RESULTS ARE PENDING. HER HOME MEDICATIONS OF LIPITOR, LEXAPRO, PRILOSEC, CRESTOR, ZANAFLEX, AND ULTRAM. WE HELD HER HYZAAR AND INSTEAD STARTED LOSARTAN 50MG DAILY. WE WILL CONTINUE WITH CURRENT PLAN OF CARE TODAY. OTHERWISE, WE PLAN TO FOLLOW-UP WITH AM LABS AND CONTINUE TO MONITOR. TIME SPENT ON CLINICAL ASSESSMENT, REVIEWING LABS AND IMAGING, DECISION MAKING, AND DOCUMENTATION GREATER THAN 45 MINUTES. - Past Medical Family Social History Past Med/Fam/Surg Hx: No changes since H&P Allergies: Allergies No Known Drug Allergies Allergy (Unknown, Verified 04/02/22 07:15) Onset Date: 10/12/2013 - Review of Systems ROS: No change since H&P - Vital Signs and I&O's Vital Signs: Vital Signs Temperature 97.6 F Temperature 97.6 F Pulse Rate [Left Radial] 66 Pulse Rate [Left Radial] 59 Respiratory Rate 18 Respiratory Rate 18 Blood Pressure [Left Arm] 118/56 Blood Pressure [Left Arm] 131/61 O2 Sat by Pulse Oximetry 97 O2 Sat by Pulse Oximetry 96 Intake and Output: Intake & Output 08/15/22 08/16/22 08/17/22 08/18/22 11:59 11:59 11:59 11:59 Intake Total 3198 / 3198 1201 / 1201 Output Total 200 / 200 Balance 2998 / 2998 1201 / 1201 - Physical Exam Oriented: Normal Eyes: Normal Ear: Normal Nose: Normal Throat: Normal Respiratory: Normal Cardiovascular: Normal : Normal Auscultation: Bowel Sounds: Normal Palpation: Normal Tenderness: Normal Skin: Normal Musculoskeletal: Normal Psychiatric: Normal Mood Description: Calm Affect: Normal Speech Pattern: Clear, Appropriate - Laboratory and Diagnostics Result Diagrams: 08/17/22 05:01 08/17/22 05:01 Labs: 08/16/22 20:17 Urine,Clean Catch Urine Culture - Preliminary Laboratory WBC 6.7 X10^3/uL (3.6-10.0) 08/17/22 05:01 RBC 3.96 X10^6/uL (3.5-5.4) 08/17/22 05:01 Hgb 11.7 g/dL (12.0-16.0) L 08/17/22 05:01 Hct 34.4 % (36.0-47.0) L 08/17/22 05:01 MCV 86.8 fL (80.0-100.0) 08/17/22 05:01 MCH 29.5 pg (27.0-34.0) 08/17/22 05:01 MCHC 34.0 g/dL (33.0-35.0) 08/17/22 05:01 RDW 13.9 % (11.6-16.5) 08/17/22 05:01 Plt Count 254 X10^3/uL (150.0-450.0) 08/17/22 05:01 MPV 7.8 fL (7.4-11.0) 08/17/22 05:01 Neut % (Auto) 52.4 % (42.0-75.0) 08/17/22 05:01 Lymph % (Auto) 28.7 % (21.0-51.0) 08/17/22 05:01 [place] % (Auto) 12.8 % (0.0-13.0) 08/17/22 05:01 Eos % (Auto) 5.4 % (0.9-2.9) H 08/17/22 05:01 Baso % (Auto) 0.7 % (0.2-1.0) 08/17/22 05:01 Neut # (Auto) 3.5 x10^3/uL (2.2-4.8) 08/17/22 05:01 Lymph # (Auto) 1.9 X10^3/uL (1.3-2.9) 08/17/22 05:01 [place] # (Auto) 0.9 x10^3/uL (0.3-0.8) H 08/17/22 05:01 Eos # (Auto) 0.4 x10^3/uL (0.0-0.2) H 08/17/22 05:01 Baso # (Auto) 0.0 X10^3/uL (0.0-0.1) 08/17/22 05:01 Absolute Nucleated RBC 0.0 /100WBC 08/17/22 05:01 Sodium 133 mmol/L (136-145) L 08/17/22 05:01 Corrected Sodium TNP 08/17/22 05:01 Potassium 4.7 mmol/L (3.5-5.1) 08/17/22 05:01 Chloride 100 mmol/L (98-107) 08/17/22 05:01 Carbon Dioxide 27.1 mmol/L (21-32) 08/17/22 05:01 BUN 13 mg/dL (7-18) 08/17/22 05:01 Creatinine 0.73 mg/dL (0.55-1.02) 08/17/22 05:01 Est GFR (MDRD) Af Amer > 60 (>60) 08/17/22 05:01 Est GFR (MDRD) Non-Af > 60 (>60) 08/17/22 05:01 Glucose 91 mg/dL (65-99) 08/17/22 05:01 Calcium 8.4 mg/dL (8.5-10.1) L 08/17/22 05:01 Corrected Calcium 9.2 mg/dL (8.5-10.1) 08/17/22 05:01 Magnesium 1.9 mg/dL (2.0-2.9) L 08/17/22 05:01 Total Bilirubin 0.40 mg/dL (0.2-1.0) 08/17/22 05:01 AST 14 Units/L (15-37) L 08/17/22 05:01 ALT 15 Units/L (12-78) 08/17/22 05:01 Alkaline Phosphatase 67 Units/L (46-116) 08/17/22 05:01 Total Protein 6.1 g/dL (6.4-8.2) L 08/17/22 05:01 Albumin 3.0 g/dL (3.4-5.0) L 08/17/22 05:01 Globulin 3.1 g/dL (2.5-4.5) 08/17/22 05:01 Albumin/Globulin Ratio 1.0 Ratio (1.1-2.1) L 08/17/22 05:01 TSH 3rd Generation 0.133 uIU/mL (0.358-3.74) L 08/16/22 08:48 Specimen Type Clean catch urine 08/16/22 20:17 Urine Color Pale yellow (YELLOW) 08/16/22 20:17 Urine Appearance Clear (CLEAR) 08/16/22 20:17 Urine pH 6.5 (5.0 - 8.0) 08/16/22 20:17 Ur Specific [place] 1.015 (1.000-1.030) 08/16/22 20:17 Urine Protein Negative (NEGATIVE) 08/16/22 20:17 Urine Glucose (UA) Negative (NEGATIVE) 08/16/22 20:17 Urine Ketones Negative (NEGATIVE) 08/16/22 20:17 Urine Blood Negative (NEGATIVE) 08/16/22 20:17 Urine Nitrite Negative (NEGATIVE) 08/16/22 20:17 Urine Bilirubin Negative (NEGATIVE) 08/16/22 20:17 Urine Urobilinogen Normal (NORMAL) 08/16/22 20:17 Ur Leukocyte Esterase 1+ (NEGATIVE) 08/16/22 20:17 Urine RBC None seen /HPF (0-3) 08/16/22 20:17 Urine WBC 0-2 /HPF (0-5) 08/16/22 20:17 Ur Squamous Epith Cells Rare /HPF (NEGATIVE) 08/16/22 20:17 Urine Bacteria Negative /HPF (NEGATIVE) 08/16/22 20:17 Ur Culture Indicated? Yes/culture set up 08/16/22 20:17 - Plan (1) Hyponatremia Status: Acute Plan: NORMAL SALINE AT 100 ML/HR. HER HOME MEDICATIONS OF LIPITOR, LEXAPRO, PRILOSEC, CRESTOR, ZANAFLEX, AND ULTRAM. WE HELD HER HYZAAR AND INSTEAD STARTED LOSARTAN 50MG DAILY. (2) Generalized weakness Status: Acute (3) Low back pain Status: Acute Qualifiers: Chronicity: acute Back pain laterality: unspecified Sciatica presence: without sciatica Qualified Code(s): M54.50 - Low back pain, unspecified (4) Hyperlipidemia Status: Chronic Qualifiers: Hyperlipidemia type: mixed hyperlipidemia Qualified Code(s): E78.2 - Mixed hyperlipidemia Plan: CONTINUE CRESTOR (5) Major depressive disorder Status: Chronic Qualifiers: Major depression recurrence: recurrent Major depression episode severity: mild Plan: STABLE. CONTINUE LEXAPRO (6) Hypertension Status: Chronic Qualifiers: Hypertension type: primary hypertension Qualified Code(s): I10 - Essential (primary) hypertension Plan: STABLE. CONTINUE LOSARTAN (7) GERD (gastroesophageal reflux disease) Status: Chronic Qualifiers: Esophagitis presence: esophagitis presence not specified Qualified Code(s): K21.9 - Gastro-esophageal reflux disease without esophagitis Plan: STABLE. CONTINUE PRILOSEC
[2022-08-18] MEDS: NS 1,000 ML IV 1,000 ML IV SCH ×3 (00:52→11:01)
[2022-08-18 05:13] LABS: BASOPHILS # (AUTO) 0.1 X10^3/uL (0.0-0.1); BASOPHILS % (AUTO) 0.9 % (0.2-1.0); EOSINOPHILS # (AUTO) 0.4 x10^3/uL (0.0-0.2); HEMATOCRIT 33.9 % (36.0-47.0); HEMOGLOBIN 11.6 g/dL (12.0-16.0); LYMPHOCYTES # (AUTO) 2.1 X10^3/uL (1.3-2.9); LYMPHOCYTES % (AUTO) 29.1 % (21.0-51.0); MEAN CORPUSCULAR HEMOGLOBIN 29.7 pg (27.0-34.0); MEAN CORPUSCULAR HGB CONC 34.2 g/dL (33.0-35.0); MEAN CORPUSCULAR VOLUME 86.8 fL (80.0-100.0); MEAN PLATELET VOLUME 8.1 fL (7.4-11.0); MONOCYTES % (AUTO) 13.7 % (0.0-13.0); NEUTROPHILS # (AUTO) 3.7 x10^3/uL (2.2-4.8); NEUTROPHILS % (AUTO) 51.3 % (42.0-75.0); PLATELET COUNT 254 X10^3/uL (150.0-450.0); WHITE BLOOD COUNT 7.2 X10^3/uL (3.6-10.0)
[2022-08-18 05:30] LABS: ALANINE AMINOTRANSFERASE 15 Units/L (12-78); ALBUMIN 2.8 g/dL (3.4-5.0); ALKALINE PHOSPHATASE 65 Units/L (46-116); ASPARTATE AMINO TRANSFERASE 14 Units/L (15-37); BLOOD UREA NITROGEN 13 mg/dL (7-18); CALCIUM 8.2 mg/dL (8.5-10.1); CHLORIDE 106 mmol/L (98-107); COR CA(FOR HYPOALB) 9.2 mg/dL (8.5-10.1); CREATININE 0.77 mg/dL (0.55-1.02); GLUCOSE 95 mg/dL (65-99); MAGNESIUM 1.8 mg/dL (2.0-2.9); POTASSIUM 4.6 mmol/L (3.5-5.1); SODIUM 139 mmol/L (136-145); TOTAL PROTEIN 5.9 g/dL (6.4-8.2); eGFR NON BLACK RACES > 60 (>60)
[2022-08-18 08:02] VITALS: BP 132/63; PULSE 71; RESP 20; TEMP 99.3; O2SAT 97
[2022-08-18] MEDS: MAG-OX TAB PO SCH (08:44)
[2022-08-18] MEDS: PriLOSEC PO SCH (08:44)
[2022-08-18] MEDS: CRESTOR TAB 10 MG PO SCH (08:44)
[2022-08-18] MEDS: LIPITOR TAB 10 MG PO SCH (08:45)
[2022-08-18] MEDS ORDERED: MAGNESIUM SULFATE 1 GRAM/100 mL PREMIX 1 G/100 ML BAG IV ONE (08:54)
[2022-08-18] MEDS ORDERED: COZAAR PO SCH (09:00)
--- NOTE | 2022-08-18 11:20 | CT ---
HISTORYweakness, amsSTUDYLUMBAR SPINE W/O CONCOMPARISONNone availableTECHNIQUEMultiple axial images of the lumbar spine were obtained from the thoracolumbar junction to the sacrum without the administration of IV contrast. Sagittal and coronal reformats were performed and reviewed. Dose reduction techniques including Automated Exposure Control (AEC) and adjustment of mA and kV were utilized.FINDINGSPneumo scoliosis of the lower lumbar spine.Compression deformity of the L5 vertebral body with approximate 50 percent central vertebral body height loss. There is mild retropulsion of the posterior vertebral wall into the spinal canal. There is mild depression without evidence of acute fracture of the superior endplate L2.No spondylolisthesis of the lumbar spine.No fracture of the sacrum. SI joints demonstrate mild degenerative change without diastasis.Limited evaluation of spinal canal and/or neural foraminal stenosis given CT examination demonstrates facet arthropathy, disc bulge and retropulsion of the vertebral body L4-5 causing [id number] spinal canal stenosis with moderate right and mild left-sided neural foraminal narrowing.Broad-based disc bulge and facet arthropathy at L3-4 causes mild spinal canal stenosis with moderate right and [id number] left-sided neural foraminal narrowing.Broad-based disc bulge at L2-3 causes no significant spinal canal stenosis with mild left-sided neural foraminal narrowing.Facet arthropathy is noted throughout the lumbar spine, findings are most severe at L4-5 and L5-S1.Moderate-sized hiatal hernia.IMPRESSIONAge-indeterminate, however, chronic appearing compression fracture deformity of the L5 vertebral body with approximate 50 percent vertebral body height loss. Mild retropulsion of the posterior vertebral body into the spinal canal.Mild scoliosis of the lower lumbar spine.Multilevel discogenic degenerative change and facet arthropathy in the lower lumbar spine causing varying degrees of spinal canal and neural foraminal stenosis as described above.Electronically signed by: RYAN ELENA (Aug 18, 2022 11:19:21)
== END 2022-08-18 11:16 | disposition home or self-care (01) ==
LOC: MED/SURG
PROVIDERS: ADMIT Internal Medicine; ATTEND Internal Medicine
DX: K21.9 Gastro-esophageal reflux disease without esophagitis; I10 Essential (primary) hypertension; F32.89 Other specified depressive episodes; R53.83 Other fatigue; E87.1 Hypo-osmolality and hyponatremia; R53.1 Weakness; R41.82 Altered mental status, unspecified; Z79.899 Other long term (current) drug therapy; E78.2 Mixed hyperlipidemia